=== PATIENT | female | born 1980 | race Caucasian/White ===

== ENCOUNTER → 2016-05-20 | Outpatient (CLI) | payer MEDICAID ==
[~2016-05-20] MED LIST: DOCU100C37 PO; IBUP-1780 PO; OXYC-465 PO; TRAM50TA2 PO
--- NOTE | 2016-05-20 12:55 | Diagnostic Imaging Report ---
CLINICAL INDICATION: Followup right thyroid nodule. COMPARISONS: Thyroid ultrasound dated 11/08/2015. FINDINGS: THYROID NODULES: Again seen roughly 9 mm x 4 mm x 5 mm solid and cystic nodule within the upper pole the right thyroid gland. This nodule previously measured 8 mm x 5 mm x 4 mm. THYROID GLAND: Besides the thyroid nodules, the thyroid gland has normal size, shape and echogenicity. The right lobe measures 6.0 cm x 1.3 cm x 1.9 cm and the left lobe measures 5.4 cm x 1.3 cm x 1.7 cm in their three dimensions. ISTHMUS: The isthmus is unremarkable and measures 2 mm in thickness. IMPRESSION: Relatively stable 9 mm nodule within the right thyroid gland. Otherwise , unremarkable thyroid ultrasound exam. Dictated by: Dictated on workstation # [id number]
== END ==
LOC: RAD 10:31
PROVIDERS: ATTEND Nurse Practitioner Family
DX: E04.9 Nontoxic goiter, unspecified (principal)
CPT/HCPCS: 76536

== ENCOUNTER 2016-06-07 10:48 | Emergency (ER) | payer MEDICAID ==
[~2016-06-07] VITALS: Ht 162.6 cm; Wt 43.1 kg
[~2016-06-07 10:48] MED LIST changes: -DOCU100C37 PO; -IBUP-1780 PO; -OXYC-465 PO
[2016-06-07 11:10] LABS: BILIRUBIN,URINE NEGATIVE (NEGATIVE); KETONES,URINE NEGATIVE (NEGATIVE); LEUKOCYTE ESTERASE ,URINE 1+ (NEGATIVE); NITRITE,URINE NEGATIVE (NEGATIVE); PH,URINE 7 (5-9); PROTEIN,URINE NEGATIVE (NEGATIVE); UROBILINOGEN,URINE NORMAL (NORMAL)
[2016-06-07] MEDS ORDERED: fentaNYL INJECTION 100 MCG/2 ML AMP IVP PRN (11:15)
[2016-06-07] MEDS ORDERED: NS IV 1000 ML 1,000 ML IV SCH (11:15)
[2016-06-07 11:22] LABS: SQUAMOUS EPITHELIAL CELL,UR 25-50 /HPF
[2016-06-07 11:30] LABS: BASOPHILS % (AUTO) 0 % (0-10); EOSINOPHILS % (AUTO) 1 % (0-10); LYMPHOCYTES # (AUTO) 1.4 X 10^3 (1.0-4.0); LYMPHOCYTES % (AUTO) 18 % (12-44); MEAN CORPUSCULAR HEMOGLOBIN 32 PG (25-34); MEAN CORPUSCULAR HGB CONC 34 G/DL (32-36); MEAN CORPUSCULAR VOLUME 93 FL (80-99); MEAN PLATELET VOLUME 11.8 FL (7.4-10.4); MONOCYTES # (AUTO) 0.4 X 10^3 (0.0-1.0); MONOCYTES % (AUTO) 5 % (0-12); NEUTROPHILS # (AUTO) 5.7 X 10^3 (1.8-7.8); NEUTROPHILS % (AUTO) 76 % (42-75); PLATELET COUNT 188 10^3/uL (130-400); RED BLOOD COUNT 4.44 10^6/uL (4.35-5.85); RED CELL DISTRIBUTION WIDTH 12.2 % (10.0-14.5); WHITE BLOOD COUNT 7.4 10^3/uL (4.3-11.0)
--- NOTE | 2016-06-07 11:46 | ED GU-Female ---
General Chief Complaint: -Female Stated Complaint: STOMACH/BACK/PELVIC PAIN Nursing Triage Note: States she is having pain in lower abd and pressure to back- unable to straighten up. 01/12. States she is scheduled for part hyst on . States she has pelvic congestion syndrome Nursing Sepsis Screen: No Definite Risk Source: patient Exam Limitations: no limitations History of Present Illness Time seen by provider: 11:41 Initial Comments This 35-year-old C-section4 white female presents with a complaint of pelvic pain. The patient has had several months of similar discomfort felt to be secondary to pelvic congestion syndrome. Patient is scheduled for a hysterectomy this next week with Dr. Blue and Dr. Patrick to treat this condition. The patient denies associated dysuria, frequency, fever, chill, hematuria, nausea, vomiting, diarrhea, or purulent discharge. Allergies and Home Medications Allergies Coded Allergies: acetaminophen (Verified Allergy, Unknown, 06/07/16) hydrocodone (Verified Allergy, Unknown, 06/07/16) nitrofurantoin (Verified Allergy, Unknown, 06/07/16) Constitutional: No chills, No fever EENTM: No hearing loss, No vision loss Respiratory: No cough Cardiovascular: No chest pain Gastrointestinal: No abdominal pain, No diarrhea, No nausea, No vomiting Genitourinary: other (pelvic pain) Musculoskeletal: No back pain Skin: No rash Psychiatric/Neurological: No Symptoms Reported Endocrine: No Symptoms Reported Hematologic/Lymphatic: No Symptoms Reported Past [id number] Hx Patient Social History Alcohol Use: Denies Use Recreational Drug Use: No Smoking Status: Current Everyday Smoker Type Used: Cigarettes 2nd Hand Smoke Exposure: Yes Recent Foreign Travel: No Contact w/Someone Who Travel: No Recent Infectious Disease Expo: No Recent Hopitalizations: No Immunizations Up To Date Tetanus Booster (TDap): Less than 5yrs Seasonal Allergies Seasonal Allergies: No Surgeries HX Surgeries: Yes Surgeries: Section, Tubal Ligation Respiratory Hx Respiratory Disorders: No Cardiovascular Hx Cardiac Disorders: No Neurological Hx Neurological Disorders: No Reproductive System Hx Reproductive Disorders: No Genitourinary Hx Genitourinary Disorders: No Gastrointestinal Hx Gastrointestinal Disorders: No Musculoskeletal Hx Musculoskeletal Disorders: No Endocrine Hx Endocrine Disorders: No HEENT HX ENT Disorders: No Cancer Hx Cancer: No Psychosocial Hx Psychiatric Problems: No Reviewed Nursing Assessment Reviewed/Agree w Nursing PMH: Yes Family Medical History Significant Family History: No Pertinent Family Hx Physical Exam Vital Signs Vital Sign - Last 12Hours 06/07/16 10:58 Temp 98.3 Pulse 91 Resp 18 B/P 103/51 Pulse Ox 98 Capillary Refill : Less Than 3 Seconds General Appearance: WD/WN mild distress HEENT: normal ENT inspection Neck: normal inspection Cardiovascular: normal peripheral pulses regular rate, rhythm Respiratory: lungs clear normal breath sounds Gastrointestinal: normal bowel sounds non tender soft Genital/Rectal: normal genital exam tenderness (moderate tenderness in the left adnexa.) Back: normal inspection Extremities: normal range of motion non-tender Neurologic/Psychiatric: no motor/sensory deficits alert normal mood/affect Skin: normal color warm/dry Progress/Results/Core Measures Results/Orders Lab Results Laboratory Tests Test 06/07/16 10:58 06/07/16 11:25 06/07/16 11:40 Range/Units Urine Bacteria NEGATIVE /HPF Urine Bilirubin NEGATIVE NEGATIVE Urine Casts NONE /LPF Urine Clarity SLIGHTLY CLOUDY Urine Color YELLOW Urine Crystals NONE /LPF Urine Culture Indicated NO Urine Glucose (UA) NEGATIVE NEGATIVE Urine Ketones NEGATIVE NEGATIVE Urine Leukocyte Esterase 1+ H NEGATIVE Urine Mucus NEGATIVE /LPF Urine Nitrite NEGATIVE NEGATIVE Urine Test NEGATIVE NEGATIVE Urine Protein NEGATIVE NEGATIVE Urine RBC NONE /HPF Urine RBC (Auto) NEGATIVE NEGATIVE Urine Specific [place] 1.010 L 1.016-1.022 Urine Squamous Epithelial Cells 25-50 H /HPF Urine Urobilinogen NORMAL NORMAL MG/DL Urine WBC NONE /HPF Urine pH 7 5-9 Alanine Aminotransferase (ALT/SGPT) 11 0-55 U/L Albumin 4.4 3.2-4.5 G/DL Alkaline Phosphatase 35 L 40-136 U/L Anion Gap 9 5-14 MMOL/L Aspartate Amino Transf (AST/SGOT) 14 5-34 U/L BUN/Creatinine Ratio 13 Basophils # (Auto) 0.0 0.0-0.1 10^3/uL Basophils (%) (Auto) 0 0-10 % Blood Urea Nitrogen 10 7-18 MG/DL Calcium Level 9.0 8.5-10.1 MG/DL Carbon Dioxide Level 24 21-32 MMOL/L Chloride Level 107 98-107 MMOL/L Creatinine 0.79 0.60-1.30 MG/DL Eosinophils # (Auto) 0.0 0.0-0.3 10^3/uL Eosinophils (%) (Auto) 1 0-10 % Erythrocyte Sedimentation Rate 2 0-20 MM/HR Estimat Glomerular Filtration Rate > 60 Glucose Level 91 70-105 MG/DL Hematocrit 41 35-52 % Hemoglobin 14.1 11.5-16.0 G/DL Lymphocytes # (Auto) 1.4 1.0-4.0 X 10^3 Lymphocytes (%) (Auto) 18 12-44 % Mean Corpuscular Hemoglobin 32 25-34 PG Mean Corpuscular Hemoglobin Concent 34 32-36 G/DL Mean Corpuscular Volume 93 80-99 FL Mean Platelet Volume 11.8 H 7.4-10.4 FL Monocytes # (Auto) 0.4 0.0-1.0 X 10^3 Monocytes (%) (Auto) 5 0-12 % Neutrophils # (Auto) 5.7 1.8-7.8 X 10^3 Neutrophils (%) (Auto) 76 H 42-75 % Platelet Count 188 130-400 10^3/uL Potassium Level 3.9 3.6-5.0 MMOL/L Red Blood Count 4.44 4.35-5.85 10^6/uL Red Cell Distribution Width 12.2 10.0-14.5 % Sodium Level 140 135-145 MMOL/L Total Bilirubin 0.7 0.1-1.0 MG/DL Total Protein 6.8 6.4-8.2 G/DL White Blood Count 7.4 4.3-11.0 10^3/uL Micro Results Microbiology 06/07/16 Genital Culture, Resulted Pending 06/07/16 Wet Prep - Final, Resulted My Orders Orders-GRANT LACKEY MD Cbc With Automated Diff (06/07/16 11:04) Comprehensive Metabolic Panel (06/07/16 11:04) Ua Culture If Indicated (06/07/16 11:04) Erythrocyte Sedimentation Rate (06/07/16 11:04) Hcg,Qualitative Urine (06/07/16 11:09) Ns Iv 1000 Ml (Sodium Chloride 0.9%) (06/07/16 11:15) Fentanyl Injection (Sublimaze Injection (06/07/16 11:15) Wet Prep (06/07/16 11:39) Neisseria Gonorrhea Dna (06/07/16 11:39) Chlamydia Dna (06/07/16 11:39) Genital Culture (06/07/16 11:39) Medications Given in ED Current Medications Medications Dose Ordered Sig/Giorgi Route Start Time Stop Time Status Last Admin Dose Admin Fentanyl Citrate 50 mcg Q1H PRN IVP 06/07/16 11:15 06/07/16 11:42 50 MCG Vital Signs/I&O Vital Sign - Last 12Hours 06/07/16 10:58 Temp 98.3 Pulse 91 Resp 18 B/P 103/51 Pulse Ox 98 Blood Pressure Mean: 68 Progress Note : Time: 11:44 Progress Note The patient's laboratory evaluation was essentially unremarkable. She normal white count and hemoglobin. The urinalysis was essentially benign. Cultures and wet mount were obtained during the patient's pelvic area exam. Patient was given IV fentanyl with marked improvement in her discomfort. Patient's laboratory evaluation was essentially unremarkable. Patient was given a small amount pain medication until she can follow up with her physicians tomorrow. Departure Impression Impression: Primary Impression: Pelvic pain Disposition: 01 HOME, SELF-CARE Condition: Improved Departure-Patient Inst. Decision time for Depature: 13:04 Referrals: APRYL CASANOVA DO (PCP) Primary Care Physician MARILUZ HERNDON APRN (Family) Primary Care Physician EDUARDO BLUE MD, ELIAS A MD Patient Instructions: Acute Pelvic Pain (DC) Add. Discharge Instructions: Tramadol for pain. Close follow Dr. Blue. Come back if any problems or questions. All discharge instructions reviewed with patient and/or family. Voiced understanding. GRANT LACKEY MD Jun 07, 2016 11:46
[2016-06-07 11:48] LABS: ALANINE AMINOTRANSFERASE 11 U/L (0-55); ALBUMIN 4.4 G/DL (3.2-4.5); ANION GAP 9 MMOL/L (5-14); ASPARTATE AMINO TRANSFERASE 14 U/L (5-34); BILIRUBIN,TOTAL 0.7 MG/DL (0.1-1.0); BLOOD UREA NITROGEN 10 MG/DL (7-18); BUN/CREATININE RATIO 13; CARBON DIOXIDE 24 MMOL/L (21-32); CHLORIDE 107 MMOL/L (98-107); CREATININE SERUM 0.79 MG/DL (0.60-1.30); GFR ESTIMATED > 60; GLUCOSE 91 MG/DL (70-105); POTASSIUM 3.9 MMOL/L (3.6-5.0); SODIUM 140 MMOL/L (135-145); TOTAL PROTEIN 6.8 G/DL (6.4-8.2)
[2016-06-07 11:55] LABS: ERYTHROCYTE SEDIMENTATION RATE 2 MM/HR (0-20)
[2016-06-07 13:17] VITALS: BP 109/45
== END 2016-06-07 13:17 | disposition home or self-care (01) ==
LOC: EDUNIT# 10:48 → ER 10:51
DX: N94.89 Other specified conditions associated with female genital organs and menstrual cycle (principal); F17.210 Nicotine dependence, cigarettes, uncomplicated
CPT/HCPCS: 36415; 80053; 81000; 84703; 85025; 85652; 87070; 87210; 87491; 87591; 96361; 96374; 99284

== ENCOUNTER 2016-06-29 11:50 | Outpatient (CLI) | payer MEDICAID ==
[~2016-06-29] VITALS: Ht 162.6 cm; Wt 44.0 kg
[2016-06-29 12:15] VITALS: BP 94/46
[2016-07-04] MEDS ORDERED: IBUP-1780 PO (08:09)
[2016-07-04] MEDS ORDERED: OXYC-465 PO (08:09)
[2016-07-04] MEDS ORDERED: DOCU100C37 PO (08:09)
== END 2016-06-29 12:10 | disposition home or self-care (01) ==
LOC: PREOP 11:50
PROVIDERS: ATTEND Obstetrics & Gynecology
DX: Z01.818 Encounter for other preprocedural examination (principal); Z11.2 Encounter for screening for other bacterial diseases; N93.8 Other specified abnormal uterine and vaginal bleeding; N39.3 Stress incontinence (female) (male); R10.2 Pelvic and perineal pain; N81.4 Uterovaginal prolapse, unspecified; D64.9 Anemia, unspecified
CPT/HCPCS: 87081

== ENCOUNTER 2016-07-03 10:36 | Day surgery (SDC) | payer MEDICAID ==
[~2016-07-03] VITALS: Ht 162.6 cm; Wt 44.0 kg
[2016-07-03] MEDS ORDERED: NS (IVPB) 0 ML ONE (10:39)
[2016-07-03] MEDS ORDERED: ceFAZolin 1,000 MG (ANCEF) VIAL ONE (10:39)
[2016-07-03] MEDS ORDERED: NS (IVPB) 50 ML ONE (10:40)
[2016-07-03] MEDS ORDERED: ceFAZolin 1 GM/NS 50 ML IVPB IV ONE ×2 (11:00)
[2016-07-03] MEDS ORDERED: MIDAZOLAM 2 MG/2 ML (VERSED) VIAL IV ONE (11:00)
[2016-07-03] MEDS ORDERED: LACTATED RINGERS 1,000 ML IV PRN ×2 (11:00→12:10)
[2016-07-03] MEDS ORDERED: fentaNYL INJECTION 250 MCG/5 ML AMP ONE (11:22)
[2016-07-03] MEDS ORDERED: proPOfol 200 MG/20 ML (DIPRIVAN) VIAL IV ONE (11:22)
[2016-07-03] MEDS ORDERED: ROCURONIUM 50 MG/5 ML (ZEMURON) VIAL IV ONE (11:22)
[2016-07-03] MEDS ORDERED: D5 LR IV SOLUTION 1,000 ML IV SCH (11:54)
--- NOTE | 2016-07-03 11:54 | Progress Note-Pre Operative ---
Pre-Operative Progress Note H&P Reviewed The H&P was reviewed, patient examined and no changes noted. Date H&P Reviewed: Jul 03, 2016 Time H&P Reviewed: 11:53 Pre-Operative Diagnosis: stress urinary incontinence/pelvic pain/DUB/pelvic congestion EDUARDO YEN MD Jul 03, 2016 11:54 am
[2016-07-03] MEDS ORDERED: MEPERIDINE (DEMEROL) INJ 100 MG/ML IM PRN (12:00)
[2016-07-03] MEDS ORDERED: PROMETHAZINE INJ 25 MG/ML (PHENERGAN) AMP IM PRN (12:00)
[2016-07-03] MEDS ORDERED: WATER (STERILE) FOR INJ 10 ML BTL INJ ONE (12:00)
[2016-07-03] MEDS ORDERED: ONDANSETRON 4 MG/2 ML (SDV) Z0FRAN IVP PRN (12:00)
[2016-07-03] MEDS ORDERED: BENZOCAINE/MENTHOL (DERMOPLAST) 56 ML CAN TP PRN (12:00)
[2016-07-03] MEDS ORDERED: ESTROGENS CONJ IV 25 MG/5 ML (PREMARIN) VIAL IVP ONE (12:00)
[2016-07-03] MEDS ORDERED: LIDOCAINE/EPI 1%-1:100,000 (XYLOCAINE) 20ML ONE (12:04)
[2016-07-03] MEDS ORDERED: BUP/EPI 0.25% 1:200,000 (MARCAINE) 30 ML VIAL ONE (12:04)
[2016-07-03] MEDS ORDERED: MIDAZOLAM 2 MG/2 ML (VERSED) VIAL ONE (12:17)
--- NOTE | 2016-07-03 12:19 | Progress Note-Post Operative ---
Post-Operative Progess Note Surgeon (s)/Creche Attendant (s) Surgeon JILLIAN AMATO MD Creche Attendant: FARSHAD Pre-Operative Diagnosis stress urinary incontinence, OAB, ISD Post-Operative Diagnosis SAME Post-Op Procedure Note Date of Procedure: Jul 03, 2016 Name of Procedure Performed: PVS AND CYSTOSCOPY Description of the Procedure: PER DICTATION Findings of the Procedure PER DICTATION Anesthesia Type GENERAL Estimated blood loss (mL): NEGLIGIBLE Packing: ESTRACE VAG. PACK Specimen(s) collected/removed NONE JILLIAN AMATO MD Jul 03, 2016 12:19 pm
[2016-07-03] MEDS ORDERED: SEVOFLURANE (ULTANE) 15 ML INHAL SOLN ONE ×2 (14:05→14:32)
[2016-07-03] MEDS ORDERED: ESTRADIOL VAGINAL CREAM 42.5 GM (ESTRACE) VG ONE (14:06)
[2016-07-03] MEDS ORDERED: NEOSTIGMINE (BLOXIVERZ ) 1 MG/1ML 10 ML VIAL ONE (14:13)
[2016-07-03] MEDS ORDERED: GLYCOPYRROLATE 0.2 MG/ML (ROBINUL) 2 ML VIAL ONE (14:13)
[2016-07-03] MEDS ORDERED: morphine INJ 10 MG/ML 1ML (SYR OR VIAL) ONE (14:26)
[2016-07-03] MEDS ORDERED: WATER (STERILE) FOR INJECTION 10 ML ONE (14:27)
[2016-07-03] MEDS ORDERED: ESTROGENS CONJ IV 25 MG/5 ML (PREMARIN) VIAL ONE (14:27)
[2016-07-03] MEDS ORDERED: MEPERIDINE (DEMEROL) INJ 50 MG/ML ONE (14:37)
[2016-07-03] MEDS: MEPERIDINE (DEMEROL) INJ 50 MG/ML IV PRN ×2 (14:40→14:45)
[2016-07-03 14:44] VITALS: BP 121/71
[2016-07-03] MEDS ORDERED: morphine INJ 10 MG/ML 1ML (SYR OR VIAL) IV PRN (14:45)
[2016-07-03] MEDS ORDERED: ONDANSETRON 4 MG/2 ML (SDV) Z0FRAN IV PRN (14:45)
[2016-07-03] MEDS ORDERED: HYDROmorphone (DILAUDID) 2 MG/ML VIAL IV PRN (14:45)
[2016-07-03 15:30] VITALS: BP 106/59
[2016-07-03 16:00] VITALS: BP 119/68
[2016-07-03 17:00] VITALS: BP 102/60
[2016-07-03 19:57] VITALS: BP 110/61
[2016-07-03] MEDS: KETOROLAC 30 MG/ML VIAL IVP SCH (21:05)
[2016-07-04] VITALS: BP 114/66
[2016-07-04] MEDS: KETOROLAC 30 MG/ML VIAL IVP SCH (02:53)
[2016-07-04 04:55] VITALS: BP 104/64
[2016-07-04 08:00] VITALS: BP 108/43
[2016-07-04] MEDS ORDERED: IBUPROFEN 800 MG (MOTRIN) TAB PO ONE (08:01)
--- NOTE | 2016-07-04 08:06 | Progress Note-Standard ---
Standard Progress Note Progress Notes/Assess & Plan Progress/Assessment & Plan patient is without complaint. She is ambulating, voiding, tolerating by mouth well, has good pain control. Patient denies chest pain, denies shortness of breath, denies nausea vomiting, and denies headache. Vital Signs Date Time Temp Pulse Resp B/P (MAP) Pulse Ox O2 Delivery O2 Flow Rate FiO2 07/04/16 04:55 97.8 84 17 104/64 98 Room Air 07/04/16 00:00 96.6 75 18 114/66 100 Room Air 07/03/16 19:57 96.0 83 18 110/61 94 Room Air 07/03/16 17:00 79 16 102/60 98 Room Air 07/03/16 16:00 97.4 90 16 119/68 99 Room Air 07/03/16 15:30 97.5 89 16 106/59 99 Room Air 07/03/16 14:44 97.6 62 18 121/71 99 Room Air I & O 07/04/16 07:00 Intake Total 2000 ml Output Total 1450 ml Balance 550 ml vital signs are stable. Patient is afebrile. Abdomen is benign. Extremities show no clubbing or cyanosis. There is no Homans sign. Assessment and plan postoperative day number 1 doing well. Plan is for discharge home with follow-up in clinic. Final Diagnosis DUB/CPP/ANA/prolapse/endometriosis EDUARDO YEN MD Jul 04, 2016 8:06 am
[2016-07-04] MEDS ORDERED: IBUP-1780 PO (08:09)
[2016-07-04] MEDS ORDERED: DOCU100C37 PO (08:09)
[2016-07-04] MEDS ORDERED: OXYC-465 PO (08:09)
--- NOTE | 2016-07-04 08:11 | Discharge Instructions ---
Discharge Instructions Discharge Medications New, Converted or Re-Newed RX: RX on Chart Patient Instructions Patient Instructions: as directed Return to The Hospital For: as directed Activity & Diet Discharge Diet: No Restrictions Activity as Tolerated: No Orders-Post D/C & Referrals Follow Up Appt: return to clinic on Sunday, July 10, 2016 at 930 a.m. for suture removal Call to make follow up appt. for patient in 4 weeks. Activity: Rest for 24 hours, than as tolerated. Wound Care: May remove Band-Aid tomorrow. Replace as desired. Keep incisions clean and dry. Wash daily with soap and water. Please call in RX to patient pharmacy. Diet: As tolerated-Clear Liquids only if nauseated. Tomorrow, may shower or tub bathe as desired. No driving for 24 hours, no alcoholic beverages for 24 hours, and nothing per vagina (no tampons, douching, or intercourse) for 8 weeks. Patient to return to the clinic as soon as possible for: Temperature greater than 101F, Severe Pain, Foul discharge from incision or vagina, Excessive Bleeding (more than a period). EDUARDO YEN MD Jul 04, 2016 8:10 am
[2016-07-04] MEDS: oxyCODONE/APAP 10/325MG (PERCOCET 10) TABLET PO PRN ×2 (08:17→11:40)
[2016-07-04] MEDS ORDERED: ONDANSETRON 8 MG (ZOFRAN) ORAL DISSOLVE TAB SL ONE (08:45)
[2016-07-04] MEDS ORDERED: DOCUSATE SODIUM 100 MG (COLACE) CAP PO SCH (09:00)
--- NOTE | 2016-07-04 10:08 | Progress Note-Urology ---
Progress Note-Urology Progress Notes/Assess & Plan Progress/Assessment & Plan DOING WELL. VOIDING WELL. FEELS EMPTYING WELL. DRY. HAPPY. PLAN CHECK PVR BEFORE PLANNING DISCHARGE AND FOLLOW UP Final Diagnosis INCONTINENCE, OAB, ISD JILLIAN AMATO MD Jul 04, 2016 10:08 am
[2016-07-04] MEDS ORDERED: IBUPROFEN 800 MG (MOTRIN) TAB PO SCH (12:00)
--- NOTE | 2016-07-05 23:55 | OPERATIVE REPORT ---
PROCEDURE PHYSICIAN: JILLIAN AMATO DATE OF PROCEDURE: 07/03/2016 PREOPERATIVE DIAGNOSIS (on my part): Urinary incontinence with overactive bladder and ISD. POSTOPERATIVE DIAGNOSIS: Urinary incontinence with overactive bladder and ISD. OPERATION PERFORMED: Pubovaginal sling and cystoscopy. SURGEON: Dr. Amato. LENS GRINDER: Dr. Blue. COMPLICATIONS: None. PROCEDURE: After Dr. Blue for performed his first part of his surgery that he will dictate, I went ahead and reinserted the Joya catheter in the bladder. I passed the Solyx pubovaginal sling on both sides using the described technique. The sling was sitting nicely under the mid urethra with no tension and no twist. The Joya catheter was removed. The cystoscope was introduced and cystoscopy confirmed intact ureteric orifices, bladder and urethra. No foreign body and presence of the sling under the mid urethra. I left the bladder half full, removed the cystoscope, and performed a manual Valsalva maneuver that was negative. I reinserted the Joya catheter draining clear urine. Estimated blood loss on my part, negligible and Dr. Blue proceeded with his part of his surgery that he will dictate. Job ID: [id number] Dictated Date: 07/03/2016 14:08:49 Survival Specialist Date: 07/05/2016 23:50:58 / tbrigo
--- NOTE | 2016-07-06 00:29 | OPERATIVE REPORT ---
PROCEDURE PHYSICIAN: EDUARDO YEN DATE OF PROCEDURE: 07/03/2016 PREOPERATIVE DIAGNOSIS: 1. Dysfunctional uterine bleeding. 2. Stress urinary incontinence. 3. Chronic pelvic pain. 4. Uterovaginal prolapse. POSTOPERATIVE DIAGNOSES: 1. Dysfunctional uterine bleeding. 2. Stress urinary incontinence. 3. Chronic pelvic pain. 4. Uterovaginal prolapse. 5. Endometriosis. OPERATIVE PROCEDURE: Total laparoscopic hysterectomy with bilateral salpingectomies, right oophorectomy followed by anterior and posterior vaginal repairs with enterocele repair as well as Dr. Patrick performing a pubovaginal sling and cystoscopy. The hysterectomy portion was done with the assistance of the da Johnny robot. With the patient in the supine position, under satisfactory general anesthesia, she was repositioned in dorsal lithotomy position in the Ankit stirrups and prepped and draped in the usual fashion for abdominal and vaginal surgery. The urinary bladder was drained via Joya catheter to dependent drainage. Weighted speculum placed in posterior fornix of the vagina. Cervix exposed and grasped anteriorly with single-tooth tenaculum. The uterus sounded to 9 cm of uterine sound. The cervix was then serially dilated with Sushant dilators to accommodate a uterine manipulator, which was placed using a SHAMIKA 2 manipulator with a 6 mm x 8 cm uterine probe, a 30 mm colpotomy ring and sutures of number 1 Vicryl at 3 and 9 o'clock position of the cervix to affix the uterine cervix to the manipulator. Joya cath was placed in the urinary bladder. The patient was brought in low dorsal lithotomy position. A 12 mm incision was made just superior to the umbilicus, 8 mm incisions were made 9 cm lateral to the umbilicus. All 3 incision sites were infiltrated with 0.25% Marcaine with epinephrine prior to incision. Veress needle was placed through the umbilical incision. Correct placement confirmed with the water drop test and the abdomen was insufflated with 2.4 liters of carbon dioxide. The Veress needle was removed and a 12 mm Optiview laparoscopic port placed. The abdominal wall was transilluminated and 8 mm ports were placed in right and left lateral incisions. The patient placed in Trendelenburg, allowing the bowel to spill up out of the pelvis and then the da Johnny column was advanced onto the patient and docked and I retired to the da Johnny console. At the console, using the vessel sealer on the right and bipolar fenestrated grasper on the left, the pelvis was first examined, finding endometriosis in both ovarian fossae and in the cul-de-sac. The fallopian tubes, the distal two thirds were surgically absent. The proximal 1/3rd of each tube was still present. The appendix was examined. It was normal. The decision was made to go ahead with the intended procedure, that being conservation of the left ovary with right oophorectomy, bilateral salpingectomies and total laparoscopic hysterectomy. The right fallopian tube and ovary were grasped and elevated. The ureter was seen to peristaltic well away from the IP ligament. The IP ligament was clamped, cauterized, and divided stepwise across to the side of uterus and then across the broad ligaments, across the round ligaments, and down on the cardinal ligament. The same procedure was performed on the left, although the left ovary was remained in situ. The utero-ovarian pedicle was clamped, cauterized, and divided being sure to remove the proximal portion of the fallopian tube that had remained after this patient's remote tubal sterilization. The round ligament, broad ligaments were divided as were the cardinal ligament insuring hemostasis along the way. The anterior lower uterine segment peritoneum was then divided with monopolar shear replacing the vessel sealer. The bladder was carefully dissected down off of the lower uterine segment and then colpotomy was easily made at 12 o'clock position, continued circumferentially until the entire colpotomy ring exposed the uterus with the portion of tube remaining was removed with the right ovary attached. The vaginal cuff was closed with 2 sutures of V-LOC nelly suture starting at the right angle and continued to the midportion and from the left angle to the midportion bringing the peritoneum down on the cuff with the last couple stitches and including closure of the uterine vessels bilaterally with the initiation of the closure. Both ureters were seen to peristaltic before, during, and after the entire procedure. The pelvis was now irrigated, monopolar shear was used to touch and cauterize all the endometriosis implants that were seen. There were a few on each side and in the cul-de-sac and one on the bladder dome. Hemostasis was complete. There was no further remaining pathology, the procedure was terminated. Attention was now turned to the anterior and posterior vaginal repair. The patient was reposition in the dorsal lithotomy position, weighted speculum placed in posterior fornix of the vagina. The Joya catheter was removed. The Chandra clamps were placed on the anterior vaginal wall in the midline and then the midline was opened with Metzenbaum scissors continuing that opening from about a centimeter and a half from the urethra meatus to almost the apex of the vagina. Bladder was carefully dissected off the muscularis of the vagina, back to pubic rami bilaterally. The bladder wall and endopelvic fascia were then plicated with 2-0 Vicryl sutures, elevating the bladder and lengthening the urethra. Dr. Patrick assumed care of the patient at this point for the pubovaginal sling and cystoscopy, I remained to assist. Dr. Patrick will dictate his portion of the procedure. On completion of Dr. Patrick's portion of the procedure, I resumed care of the patient, resected the redundant anterior vaginal muscularis and mucosa and closed the vaginal wall with a running lock suture of 2-0 Vicryl. Hemostasis was complete. Dr[address] Patrick had replaced the Joya catheter to dependent drainage on completion of his portion of the procedure; that was left to dependent drainage. Posterior repair was now affected by placing Chandra clamps on the perineum and the hymenal ring at 5 and 7 o'clock positions. An inverted triangle of skin was removed from the perineal body and upright triangle from the posterior vaginal floor. The rectovaginal space was entered sharply and dissected bluntly to the apex of the vagina. There was a small enterocele that was reduced and plicated with 2-0 Vicryl suture purse strings using 2 of those and then the rectovaginal space was obliterated with additional sutures of 2-0 Vicryl. The perineal body was restored 2-0 Vicryl. The redundant posterior vaginal muscularis and mucosa was removed sharply. The vaginal wall was then closed with running locked suture of 3-0 Vicryl Rapide. That closure was continued past the hymenal ring down on the perineal body and then back up subcutaneous to the hymenal ring where the suture was tied. The vagina was examined for hemostasis, which was complete. The vaginal cuff was well approximated and hemostatic. The rectal exam was performed finding no sutures into or through the rectal mucosa, no stricture or stenosis of the rectum. The vagina was now filled with esterase vaginal cream and a pack of Kerlix gauze was placed. Sponge and needle counts were correct at the end of procedure. Estimated blood loss for the procedure was 150 mL. The patient tolerated the procedure well and was uneventfully awakened from her general anesthesia and transferred to recovery room in stable condition. Job ID: [id number] Dictated Date: 07/03/2016 14:26:59 Fish Skinning Machine Feeder Date: 07/06/2016 00:13:37 / munir
--- OUTSIDE RECORDS SUMMARY | 2016-07-26 08:04 | XMS REPORT ---
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 Problem Encounter for screening breast examination Z12.39 Active Problem Encounter for screening for malignant neoplasm of cervix Z12.4 Active Problem Atypical squamous cells of undetermined significance on cytologic smear of cervix (ASC-US) R87.610 Active Problem Pelvic congestion syndrome N94.89 Active Problem Bipolar 2 disorder F31.81 Active Problem Encounter for well woman exam Z01.419 Active Problem Encounter for gynecological examination without abnormal finding Z01.419 Active Problem H/O thyroid nodule Z86.39 Active Problem Irritable bowel syndrome with both constipation and diarrhea K58.0 Active Problem Routine health maintenance Z00.00 Active Problem Goiter E04.9 Active Problem Screen for STD (sexually transmitted disease) Z11.3 Active Problem Underweight R63.6 Active Problem High risk sexual behavior Z72.51 Active Problem 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
--- OUTSIDE RECORDS SUMMARY | 2016-07-26 08:04 | XMS REPORT ---
Author LYNDON Flynn [facility] eClinicalWorks Address Unknown Phone Unavailable Care Team Providers Care Calculus Tutor Name Role Phone LYNDON DELGADO CP Unavailable Allergies, Adverse Reactions, Alerts Substance Reaction Event Type Vicodin stomach upset Drug Allergy Macrobid itching Drug Allergy Problems Problem Type Condition Code Onset Dates [...] with both constipation and diarrhea K58.0 Active Assessment Lumbago with sciatica, right side M54.41 Active Assessment Lumbago with sciatica, left side M54.42 Active Problem Routine health maintenance Z00.00 Active Problem Goiter E04.9 Active Problem Screen for STD (sexually transmitted disease) Z11.3 Active Problem Underweight R63.6 Active Problem High risk sexual behavior Z72.51 Active Problem 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 Medications Medication Code System Code Instructions Start Date End Date Status Dosage Ibuprofen NDC 0 not defined Seroquel XR [facility] [address]-59 50 mg Orally Once a day Nov 14, 2015 1 tablet in the evening Cyclobenzaprine HCl [facility] [address]-58 10 MG Orally Three times a day NovNov 27, 2015 1 tablet Tramadol HCl [facility] [address]-62 50 MG Orally every 6 hrs Nov 22, 2015 Nov 27, 2015 1 tablet as needed [facility] [address]-71 50 MG Orally Once a day Nov 22, 2015 Nov 27, 2015 1 tablet Procedures Procedure Coding System Code Date Office Visit, Est Pt., Level 3 CPT-4 18314 Nov 22, 2015 X-RAY EXAM OF LOWER SPINE CPT-4 80668 Nov 22, 2015 Vital Signs Date/Time: Nov 22, 2015 Cardiac Monitoring Heart Rate 73 bpm Weight 91.8 lbs Height 5'4" in BMI 15.76 Index Blood Pressure Diastolic 70 mmHg Blood Pressure Systolic 102 mmHg Results No Known Results Summary Purpose eClinicalWorks Submission
--- OUTSIDE RECORDS SUMMARY | 2016-07-26 08:04 | XMS REPORT ---
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
--- OUTSIDE RECORDS SUMMARY | 2016-07-26 08:04 | XMS REPORT ---
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 Problem Encounter for screening breast examination Z12.39 Active Assessment High risk sexual behavior Z72.51 Active Assessment Screen for STD (sexually transmitted disease) Z11.3 Active Problem Encounter for well woman exam Z01.419 Active Problem 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 Problem Underweight R63.6 Active Problem Encounter for screening for malignant neoplasm of cervix Z12.4 Active Problem 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 Active Assessment Encounter for special screening examination for neoplasm of breast Z12.39 Active Assessment Encounter for screening breast examination Z12.39 Active Assessment Encounter for screening for malignant neoplasm of cervix Z12.4 Active Assessment 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 Active Assessment Goiter E04.9 Active Assessment Underweight R63.6 Active Assessment Encounter for gynecological examination without abnormal finding Z01.419 Active Assessment Encounter for well woman exam Z01.419 Active Assessment Routine health maintenance Z00.00 Active Problem Screen for STD (sexually transmitted disease) Z11.3 Active Medications No Known Medications Procedures Procedure Coding System Code Date GLYCATED HEMOGLOBIN TEST CPT-4 15800 Nov 04, 2015 VITAMIN B-12 CPT-4 12555 Nov 04, 2015 LIPID PANEL CPT-4 30230 Nov 04, 2015 VENIPUNCT, ROUTINE* CPT-4 67995 Nov 04, 2015 COMPREHEN METABOLIC PANEL CPT-4 84057 Nov 04, 2015 ASSAY OF VITAMIN D CPT-4 21360 Nov 04, 2015 ASSAY THYROID STIM HORMONE CPT-4 01497 Nov 04, 2015 COMPLETE CBC W/AUTO DIFF WBC CPT-4 12270 Nov 04, 2015 Results No Known Results Summary Purpose eClinicalWorks Submission
--- OUTSIDE RECORDS SUMMARY | 2016-07-26 08:04 | XMS REPORT ---
Author Author MARILUZ HERNDON Organization eClinicalWorks Address Unknown Phone Unavailable Care Team Providers Care Chlorine Cells Operator Name Role Phone MARILUZ HERNDON CP Unavailable Allergies, Adverse Reactions, Alerts Substance Reaction Event Type Vicodin stomach upset Drug Allergy Macrobid itching Drug Allergy Problems Problem Type Condition Code Onset Dates Condition Status Problem High risk sexual behavior Z72.51 Active Problem Goiter E04.9 Active Problem Routine health maintenance Z00.00 Active Problem Encounter for gynecological examination without abnormal finding Z01.419 Active Assessment High risk sexual behavior Z72.51 Active Problem Encounter for screening breast examination Z12.39 Active Assessment Screen for STD (sexually transmitted disease) Z11.3 Active Problem Encounter for well woman exam Z01.419 Active Problem 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 Problem Underweight R63.6 Active Problem Encounter for screening for malignant neoplasm of cervix Z12.4 Active Problem 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 Active Assessment Underweight R63.6 Active Assessment 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 Assessment Routine health maintenance Z00.00 Active Assessment Goiter E04.9 Active Assessment Encounter for screening breast examination Z12.39 Active Assessment Encounter for gynecological examination without abnormal finding Z01.419 Active Assessment 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 Active Assessment Encounter for well woman exam Z01.419 Active Assessment Encounter for screening for malignant neoplasm of cervix Z12.4 Active Problem Screen for STD (sexually transmitted disease) Z11.3 Active Medications No Known Medications Procedures Procedure Coding System Code Date TRICHOMONAS ASSAY W/OPTIC CPT-4 78783 October 31, 2015 CARDOZO VAG, DNA, DIR PROBE CPT-4 44450 October 31, 2015 SPECIMEN HANDLING CPT-4 76606 October 31, 2015 No Charge CPT-4 72803 October 31, 2015 CULTURE, BACTERIA, OTHER CPT-4 68130 October 31, 2015 Preventive Care New Pt. Age 18-39 CPT-4 98987 October 31, 2015 Vital Signs Date/Time: October 31, 2015 Cardiac Monitoring Heart Rate 66 bpm Weight 92.0 lbs Height 5'4" in BMI 15.79 Index Blood Pressure Diastolic 60 mmHg Blood Pressure Systolic 92 mmHg Results No Known Results Summary Purpose eClinicalWorks Submission
--- OUTSIDE RECORDS SUMMARY | 2016-07-26 08:05 | XMS REPORT ---
Author Author MARILUZ HERNDON Organization eClinicalWorks Address Unknown Phone Unavailable Care Team Providers Care Supervisor Cd Area Name Role Phone MARILUZ HERNDON CP Unavailable [...] cytologic smear of cervix (ASC-US) R87.610 Active Assessment Underweight R63.6 Active Problem Pelvic congestion syndrome N94.89 Active Assessment Pelvic congestion syndrome N94.89 Active Assessment H/O thyroid nodule Z86.39 Active Problem Bipolar 2 disorder F31.81 Active Problem Encounter for well woman exam Z01.419 Active Problem Encounter for gynecological examination without abnormal finding Z01.419 Active Problem H/O thyroid nodule Z86.39 Active Problem Irritable bowel syndrome with both constipation and diarrhea K58.0 Active Assessment Bipolar 2 disorder F31.81 Active Assessment Routine health maintenance Z00.00 Active Assessment Goiter E04.9 Active Assessment Atypical squamous cells of undetermined significance on cytologic smear of cervix (ASC-US) R87.610 Active Problem Routine health maintenance Z00.00 Active Problem Goiter E04.9 Active Problem Screen for STD (sexually transmitted disease) Z11.3 Active Problem Underweight R63.6 Active Assessment Irritable bowel syndrome with both constipation and diarrhea K58.0 Active Problem High risk sexual behavior Z72.51 Active Problem 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
== END 2016-07-04 11:50 | disposition home or self-care (01) ==
LOC: DELPENDDIS → SDC 10:36 → WS 15:30 → SDC 07-04 11:50
PROVIDERS: ATTEND Obstetrics & Gynecology
DX: N93.8 Other specified abnormal uterine and vaginal bleeding (principal); N81.4 Uterovaginal prolapse, unspecified; N39.3 Stress incontinence (female) (male); N80.1 Endometriosis of ovary; N80.3 Endometriosis of pelvic peritoneum; R10.2 Pelvic and perineal pain; N36.42 Intrinsic sphincter deficiency (ISD); N32.81 Overactive bladder; N83.201 Unspecified ovarian cyst, right side
CPT/HCPCS: 84703; 86850; 86900; 86901; 88307; 96361; 96372; 96375; 96376

== ENCOUNTER → 2016-09-24 | Outpatient (CLI) | payer MEDICAID ==
[~2016-09-24] MED LIST changes: +DOCU100C37 PO; +IBUP-1780 PO; +OXYC-465 PO
== END ==
DX: N63 Unspecified lump in breast (principal); N60.11 Diffuse cystic mastopathy of right breast; N60.12 Diffuse cystic mastopathy of left breast

== ENCOUNTER 2016-11-06 20:08 | Emergency (ER) | payer MEDICAID ==
[~2016-11-06] VITALS: Ht 162.6 cm; Wt 41.7 kg
[2016-11-06] MEDS ORDERED: AMOX500C2 PO (21:21)
[2016-11-06] MEDS ORDERED: NAPR500T PO (21:21)
--- NOTE | 2016-11-06 21:21 | ED EENT ---
History of Present Illness General Chief Complaint: Dental Problems/Pain Stated Complaint: WISDOM TOOTH BROKEN Nursing Triage Note: PT TO ED 10 W/ C/O DENTAL PAIN ONSET 1630. REPORTS WAS EATING ET A PIECE OF HER "ALREADY BROKE WISDOM TOOTH" BROKE OFF AGAIN. NO OTHER C/O VOICED Source: patient Exam Limitations: no limitations History of Present Illness Time seen by provider: 21:18 Initial Comments To ER with reports of dental pain that began at about 430 p.m. today after she was chewing. She states this tooth has previously broken. Timing/Duration: abrupt Severity: moderate Location: dental Associated Symptoms: denies symptoms Allergies and Home Medications Allergies Coded Allergies: acetaminophen (Verified Allergy, Unknown, 06/07/16) hydrocodone (Verified Allergy, Unknown, 06/07/16) nitrofurantoin (Verified Allergy, Unknown, 06/07/16) Home Medications Docusate Sodium 100 Mg Capsule, 100 MG PO BID, #60 Prescribed by: EDUARDO CASTRO on 07/04/16 0809 Ibuprofen 800 Mg Tablet, 800 MG PO Q6HR, #60 Prescribed by: EDUARDO CASTRO on 07/04/16 0809 Oxycodone HCl/Acetaminophen 1 Each Tablet, 1-2 TAB PO Q4H, #60 Prescribed by: EDUARDO CASTRO on 07/04/16 0809 Review of Systems Constitutional: see HPI Eyes: No Symptoms Reported Ears: No Symptoms Reported Nose: no symptoms reported Mouth: see HPI Throat: no symptoms reported Respiratory: no symptoms reported Cardiovascular: no symptoms reported Musculoskeletal: no symptoms reported Past Okbqcvb-Xvyawt-Zdpzrs Hx Patient Social History Alcohol Use: Denies Use Recreational Drug Use: No Smoking Status: Current Everyday Smoker Type Used: Cigarettes 2nd Hand Smoke Exposure: Yes Recent Foreign Travel: No Contact w/Someone Who Travel: No Recent Infectious Disease Expo: No Recent Hopitalizations: No Immunizations Up To Date Tetanus Booster (TDap): Less than 5yrs Seasonal Allergies Seasonal Allergies: No Surgeries HX Surgeries: Yes (c/s x4, ) Surgeries: Section, Tubal Ligation Respiratory Hx Respiratory Disorders: No Cardiovascular Hx Cardiac Disorders: Yes Cardiac Disorders: Heart Murmur Neurological Hx Neurological Disorders: No Reproductive System Hx Reproductive Disorders: Yes Genitourinary Hx Genitourinary Disorders: No Gastrointestinal Hx Gastrointestinal Disorders: Yes (upper right quad pain for 6 years unable to figure out from what) Gastrointestinal Disorders: Irritable Bowel Musculoskeletal Hx Musculoskeletal Disorders: No Endocrine Hx Endocrine Disorders: No (nodule on right side of thyroid no change in size in past year) HEENT HX ENT Disorders: No Cancer Hx Cancer: No Psychosocial Hx Psychiatric Problems: No Integumentary HX Skin/Integumentary Disorder: No Blood Transfusions Hx Blood Disorders: No (hx of anemia) Family Medical History Significant Family History: No Pertinent Family Hx Family Medial History: Arthritis 19 FATHER Asthma G8 BROTHER Drug abuse 19 FATHER Hypertension 19 MOTHER Respiratory disorder 19 MOTHER Physical Exam Vital Signs Vital Sign - Last 12Hours 11/06/16 20:12 Temp 98.4 Pulse 57 Resp 20 B/P (MAP) 116/61 Pulse Ox 99 O2 Delivery Room Air General Appearance: WD/WN, no apparent distress Eyes: bilateral eye EOMI, bilateral eye PERRL, bilateral eye normal inspection Ears: bilateral ear TM normal, bilateral ear auricle normal, bilateral ear canal normal Mouth/Throat: normal mouth inspection, other (fractured tooth) Neck: non-tender, full range of motion Respiratory: no respiratory distress, no accessory muscle use Gastrointestinal: non tender, soft Neurologic/Psychiatric: alert, normal mood/affect, oriented x 3 Skin: normal color, warm/dry Progress/Results/Core Measures Results/Orders My Orders Orders - PAWAN PULIDO APRN Rx-Tramadol Hcl (Rx-Ultram) (11/06/16 21:16) Lidocaine 2% Viscous 15 Ml (Xylocaine Vi (11/06/16 21:30) Amoxicillin Capsule (Polymox Capsule) (11/06/16 21:16) Vital Signs/I&O Vital Sign - Last 12Hours 11/06/16 20:12 Temp 98.4 Pulse 57 Resp 20 B/P (MAP) 116/61 Pulse Ox 99 O2 Delivery Room Air Blood Pressure Mean: 79 Progress Note : Progress Note When asked who her dentist was she states "I'm new to [place]". Despite this, she has 11 encounters with his hospital in the last year. Departure Impression Impression: Primary Impression: Fractured tooth Disposition: HOME, SELF-CARE Condition: Stable Departure-Patient Inst. Decision time for Depature: 21:20 Referrals: DAYAMI MCALLISTER MD (PCP) Primary Care Physician Patient Instructions: Fractured Tooth (DC) Add. Discharge Instructions: 1. You must follow-up with a dentist. If you do not have one, go to [facility] on on [address] on Wednesday morning in person to make an appointment as soon as possible 2. Antibiotics as directed 3. When Your pain pills run out, use Tylenol and Motrin. All discharge instructions reviewed with patient and/or family. Voiced understanding. Scripts Naproxen (Naprosyn) 500 Mg Tablet 500 MG PO BID, #30 TAB Prov: PAWAN PULIDO APRN 11/06/16 Amoxicillin (Amoxicillin) 500 Mg Capsule 500 MG PO TID, #21 CAP Prov: PAWAN PULIDO APRN 11/06/16 PAWAN PULIDO APRN Nov 06, 2016 21:21
[2016-11-06] MEDS: LIDOCAINE 2% VISCOUS 15 ML UDC PO ONE (21:27)
[2016-11-06] MEDS: AMOXICILLIN 500 MG (POLYMOX) CAP PO STA (21:27)
[2016-11-06 21:31] VITALS: BP 0/0
[2016-11-06] MEDS: RX-TRAMADOL 50 MG (ULTRAM) TAB PPK#4 PO STA (21:31)
== END 2016-11-06 21:31 | disposition home or self-care (01) ==
LOC: EDUNIT# 20:08 → ER 20:10
DX: K03.81 Cracked tooth (principal); F17.210 Nicotine dependence, cigarettes, uncomplicated; Z98.51 Tubal ligation status; Z87.59 Personal history of other complications of pregnancy, childbirth and the puerperium; Z87.19 Personal history of other diseases of the digestive system
CPT/HCPCS: 99283

== ENCOUNTER 2017-02-25 17:47 | Emergency (ER) | payer MEDICAID ==
[~2017-02-25] VITALS: Ht 162.6 cm; Wt 44.5 kg
[~2017-02-25 17:47] MED LIST changes: +AMOX500C2 PO; +NAPR500T PO
--- OUTSIDE RECORDS SUMMARY | 2017-02-25 17:53 | XMS REPORT ---
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 405360353 Problem Irritable bowel syndrome with both constipation and diarrhea K58.0 Active 32831256 Problem 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 Active 098816351 Problem High risk sexual behavior Z72.51 Active 183246206 Problem Goiter E04.9 Active 6042979 Problem Underweight R63.6 Active 052811335 Problem Midline cystocele N81.11 Active 126349256 Problem Urinary, incontinence, stress female N39.3 Active 80495750 Problem Pelvic congestion syndrome N94.89 Active 41945450 Problem H/O thyroid nodule Z86.39 Active 852204652 Problem Bipolar 2 disorder F31.81 Active 33852462 Problem Atypical squamous cells of undetermined significance on cytologic smear of cervix (ASC-US) R87.610 Active 687878379 ALLERGIES Substance Reaction Event Type Date Status Vicodin stomach upset Drug Allergy Feb, Active Macrobid itching Drug Allergy Feb, Active SOCIAL HISTORY No smoking Hx information available PLAN OF CARE Activity Details Follow Up prn Reason:FU with PCP VITAL SIGNS Height 5'4" in 2016-03-04 Weight 95.4 lbs 2016-03-04 Heart Rate 78 bpm 2016-03-04 Respiratory Rate 16 2016-03-04 BMI 16.37 kg/m2 2016-03-04 Blood pressure systolic 98 mmHg 2016-03-04 Blood pressure diastolic 62 mmHg 2016-03-04 MEDICATIONS Unknown Medications RESULTS No Results PROCEDURES Procedure Date Ordered Related Diagnosis Body Site Office Visit, Est Pt., Level 3 Mar 04, 2016 IMMUNIZATIONS No Known Immunizations
--- OUTSIDE RECORDS SUMMARY | 2017-02-25 17:53 | XMS REPORT ---
Author Author MARILUZ HERNDON Organization [facility] [place] Address [address] [place] [address] Care Team Providers Care Crop Insurance Claims Adjuster Name Role Phone HERNDONMARILUZ Rodriguez Unavailable PROBLEMS Type Condition ICD9-CM Code [id number] Code Onset Dates Condition Status SNOMED Code Problem High risk sexual behavior Z72.51 Active 290560184 Problem Bipolar 2 disorder F31.81 Active 20942170 Problem Atypical squamous cells of undetermined significance on cytologic smear of cervix (ASC-US) R87.610 Active 858135478 Problem 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 Active 266653197 Problem 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 773879067 Problem Underweight R63.6 Active 437573940 Problem Goiter E04.9 Active 6910135 Problem Other chronic pain G89.29 Active 03613838 Problem Midline cystocele N81.11 Active 746598319 Problem Irritable bowel syndrome with both constipation and diarrhea K58.0 Active 46541114 Problem Pelvic congestion syndrome N94.89 Active 00934726 Problem Urinary, incontinence, stress female N39.3 Active 09164640 Problem H/O thyroid nodule Z86.39 Active 432290247 ALLERGIES Unknown Allergies SOCIAL HISTORY No smoking Hx information available PLAN OF CARE VITAL SIGNS MEDICATIONS Unknown Medications RESULTS Name Result Date Reference Range Ultrasound : Thyroid 2016-05-20 PROCEDURES No Known procedures IMMUNIZATIONS No Known Immunizations
--- OUTSIDE RECORDS SUMMARY | 2017-02-25 17:54 | XMS REPORT ---
Author Author MARILUZ HERNDON Organization [facility] Address [address] [place] [address] Care Team Providers Care Waterside Worker Name Role Phone KATRINA MARILUZ Unavailable PROBLEMS Type Condition ICD9-CM Code SGP62-IF Code Onset Dates Condition Status SNOMED Code Problem High risk sexual behavior Z72.51 Active 814824795 Problem Bipolar 2 disorder F31.81 Active 83148582 Problem Atypical squamous cells of undetermined significance on cytologic smear of cervix (ASC-US) R87.610 Active 684589170 Problem 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 Active 857702944 Problem 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 936417597 Problem Underweight R63.6 Active 243603643 Problem Goiter E04.9 Active 3114600 Problem Other chronic pain G89.29 Active 54824832 Problem Midline cystocele N81.11 Active 917761945 Problem Irritable bowel syndrome with both constipation and diarrhea K58.0 Active 25712712 Problem Pelvic congestion syndrome N94.89 Active 98932326 Problem Urinary, incontinence, stress female N39.3 Active 86788573 Problem H/O thyroid nodule Z86.39 Active 789854842 ALLERGIES No Information SOCIAL HISTORY Never Assessed PLAN OF CARE VITAL SIGNS MEDICATIONS Unknown Medications RESULTS No Results PROCEDURES No Known procedures IMMUNIZATIONS No Known Immunizations MEDICAL (GENERAL) HISTORY Type Description Date Medical History pelvic congestion syndrome Medical History IBS Medical History heart murmur Medical History Irritable bowel syndrome with both constipation and diarrhea Medical History Underweight Medical History Goiter Medical History Benign neoplasm of right breast Medical History Benign neoplasm of left breast Medical History Bipolar 2 disorder Medical History scoliosis Surgical History x 4 Surgical History Tubal ligation Surgical History partial hysterectomy. Has left ovary remaining/bladder sling 07/03/2016 Hospitalization History hysterectomy 2016
--- OUTSIDE RECORDS SUMMARY | 2017-02-25 17:54 | XMS REPORT ---
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 068275635 Problem Irritable bowel syndrome with both constipation and diarrhea K58.0 Active 87200228 Problem 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 Active 613509372 Problem High risk sexual behavior Z72.51 Active 230748675 Problem Goiter E04.9 Active 7590674 Problem Underweight R63.6 Active 423756080 Problem Midline cystocele N81.11 Active 224207026 Problem Urinary, incontinence, stress female N39.3 Active 81867315 Problem Pelvic congestion syndrome N94.89 Active 64400252 Problem H/O thyroid nodule Z86.39 Active 239355448 Problem Bipolar 2 disorder F31.81 Active 16924572 Problem Atypical squamous cells of undetermined significance on cytologic smear of cervix (ASC-US) R87.610 Active 015521242 ALLERGIES Unknown Allergies SOCIAL HISTORY No smoking Hx information available PLAN OF CARE VITAL SIGNS MEDICATIONS Unknown Medications RESULTS No Results PROCEDURES No Known procedures IMMUNIZATIONS No Known Immunizations
--- OUTSIDE RECORDS SUMMARY | 2017-02-25 17:54 | XMS REPORT ---
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
--- OUTSIDE RECORDS SUMMARY | 2017-02-25 17:55 | XMS REPORT ---
Author Author TIMI JENKINS [facility] Address [address] [place] [address] Care Team Providers Care Field Ring Assembler Name Role Phone TIMI JENKINS Unavailable PROBLEMS Type Condition ICD9-CM Code [id number] Code Onset Dates Condition Status SNOMED Code Problem High risk sexual behavior Z72.51 Active 114909712 Problem Bipolar 2 disorder F31.81 Active 93554301 Problem Atypical squamous cells of undetermined significance on cytologic smear of cervix (ASC-US) R87.610 Active 128830714 Problem 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 Active 257624198 Problem 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 240710302 Problem Underweight R63.6 Active 976851872 Problem Goiter E04.9 Active 3743878 Problem Other chronic pain G89.29 Active 06248334 Problem Midline cystocele N81.11 Active 608411597 Problem Irritable bowel syndrome with both constipation and diarrhea K58.0 Active 82547336 Problem Pelvic congestion syndrome N94.89 Active 84931773 Problem Urinary, incontinence, stress female N39.3 Active 44638203 Problem H/O thyroid nodule Z86.39 Active 655945233 ALLERGIES Substance Reaction Event Type Date Status Vicodin stomach upset Drug Allergy May, Active Macrobid itching Drug Allergy May, Active SOCIAL HISTORY Never Assessed PLAN OF CARE Activity Details Follow Up prn Reason: VITAL SIGNS Height 5'4" in 2016-06-02 Weight 95.2 lbs 2016-06-02 Temperature 97.9 degrees Fahrenheit 2016-06-02 Heart Rate 74 bpm 2016-06-02 Respiratory Rate 18 2016-06-02 BMI 16.34 kg/m2 2016-06-02 Blood pressure systolic 94 mmHg 2016-06-02 Blood pressure diastolic 56 mmHg 2016-06-02 MEDICATIONS Medication Instructions Dosage Frequency Start Date End Date Duration Status Bacitracin 500 UNIT/GM Ophthalmic four times per day 1 application MayJun, 7 days Active RESULTS No Results PROCEDURES No Known procedures [...]
[2017-02-25 18:16] LABS: BILIRUBIN,URINE NEGATIVE (NEGATIVE); KETONES,URINE NEGATIVE (NEGATIVE); LEUKOCYTE ESTERASE ,URINE 3+ (NEGATIVE); NITRITE,URINE NEGATIVE (NEGATIVE); PH,URINE 5 (5-9); PROTEIN,URINE 2+ (NEGATIVE); UROBILINOGEN,URINE NORMAL (NORMAL)
[2017-02-25 18:38] LABS: WBC,URINE 50-100 /HPF
[2017-02-25] MEDS ORDERED: CEPHALEXIN 250 MG (KEFLEX) CAP PO STA (18:48)
[2017-02-25] MEDS ORDERED: PHENAZOPYRIDINE 100 MG (PYRIDIUM) TABLET PO STA (18:48)
[2017-02-25] MEDS ORDERED: CEPH500T PO (18:55)
[2017-02-25] MEDS ORDERED: PHEN-639 PO (18:55)
--- NOTE | 2017-02-25 18:55 | ED GU-Female ---
General Chief Complaint: -Female Stated Complaint: BLOOD IN URINE Nursing Triage Note: PT CO OF BLOOD IN URINE, PAIN AND BURNING UPON URINATION, STARTED TODAY Nursing Sepsis Screen: No Definite Risk Source: patient Exam Limitations: no limitations History of Present Illness Time seen by provider: 18:40 Initial Comments Here with report of pressure/pain to the area of the bladder and burning with urination. Did have some blood in the urine today. All of these are similar to when she had a urinary tract infection 1 month ago. States this is typically related to when she has sexual activity but says that that hasn't happened recently so she is not sure of the cause. Previously on Keflex which worked. Denies nausea, vomiting, diarrhea or fever. Timing/Duration: this morning Severity/Quality: moderate Location: suprapubic Radiation: urethral Activities at Onset: none Sexual [place] History: less than 2 months ago, single partner Associated Symptoms: dysuria, No fever/chills, No nausea/vomiting, urinary frequency Allergies and Home Medications Allergies Coded Allergies: acetaminophen (Verified Allergy, Unknown, 06/07/16) hydrocodone (Verified Allergy, Unknown, 06/07/16) nitrofurantoin (Verified Allergy, Unknown, 06/07/16) Home Medications Amoxicillin 500 Mg Capsule, 500 MG PO TID, #21 Prescribed by: PAWAN PULIDO on 11/06/162120 Docusate Sodium 100 Mg Capsule, 100 MG PO BID, #60 Prescribed by: EDUARDO CASTRO on 07/04/16 0809 Ibuprofen 800 Mg Tablet, 800 MG PO Q6HR, #60 Prescribed by: EDUARDO CASTRO on 07/04/16 0809 Naproxen 500 Mg Tablet, 500 MG PO BID, #30 Prescribed by: PAWAN PULIDO on 11/06/161 Oxycodone HCl/Acetaminophen 1 Each Tablet, 1-2 TAB PO Q4H, #60 Prescribed by: EDUARDO CASTRO on 07/04/16 0809 Constitutional: see HPI, No chills, No fever Respiratory: no symptoms reported Cardiovascular: no symptoms reported Gastrointestinal: see HPI Genitourinary: see HPI : No Musculoskeletal: no symptoms reported Past Arbshah-Trkega-Xavmmr Hx Patient Social History Alcohol Use: Denies Use Recreational Drug Use: No Smoking Status: Current Everyday Smoker Type Used: Cigarettes 2nd Hand Smoke Exposure: Yes Recent Foreign Travel: No Contact w/Someone Who Travel: No Recent Infectious Disease Expo: No Recent Hopitalizations: No Physical Abuse: No Sexual Abuse: No Immunizations Up To Date Tetanus Booster (TDap): Less than 5yrs Seasonal Allergies Seasonal Allergies: No Surgeries History of Surgeries: Yes (c/s x4, ) Surgeries: Bladder Surgery, Section, Hysterectomy, Tubal Ligation Respiratory History of Respiratory Disorde: No Cardiovascular History of Cardiac Disorders: Yes Cardiac Disorders: Heart Murmur Neurological History of Neurological Disord: No Reproductive System Hx Reproductive Disorders: Yes Gastrointestinal History of Gastrointestinal Di: Yes (upper right quad pain for 6 years unable to figure out from what) Gastrointestinal Disorders: Irritable Bowel Musculoskeletal History of Musculoskeletal Dis: No Endocrine History of Endocrine Disorders: No (nodule on right side of thyroid no change in size in past year) Cancer History of Cancer: No Psychosocial History of Psychiatric Problem: No Suicide Risk Score: 0 Integumentary History of Skin or Integumenta: No Blood Transfusions History of Blood Disorders: No (hx of anemia) Reviewed Nursing Assessment Reviewed/Agree w Nursing PMH: Yes Family Medical History Significant Family History: No Pertinent Family Hx Family Medial History: Arthritis 19 FATHER Asthma G8 BROTHER Drug abuse 19 FATHER Hypertension 19 MOTHER Respiratory disorder 19 MOTHER Physical Exam Vital Signs Vital Sign - Last 12Hours 02/25/17 18:05 Temp 98.1 Pulse 90 Resp 18 B/P (MAP) 112/55 Capillary Refill : Less Than 3 Seconds General Appearance: WD/WN, no apparent distress Cardiovascular: regular rate, rhythm, no murmur Respiratory: lungs clear, normal breath sounds Gastrointestinal: soft, tenderness (very mild suprapubic area) Back: normal inspection, no CVA tenderness, no vertebral tenderness Neurologic/Psychiatric: alert, oriented x 3 Progress/Results/Core Measures Suspected Sepsis Recent Fever Within 48 Hours: No Infection Criteria Present: None New/Unexplained Altered Menta: No Sepsis Screen: No Definite Risk Sepsis Diagnosis: SIRS Temperature:98.1 Pulse: 90 Respiratory Rate: 18 Blood Pressure 112 /55 Mean: 74 Results/Orders Lab Results Laboratory Tests Test 02/25/17 18:10 Range/Units Urine Color YELLOW Urine Clarity VERY CLOUDY H Urine pH 5 5-9 Urine Specific [place] 1.010 L 1.016-1.022 Urine Protein 2+ H NEGATIVE Urine Glucose (UA) NEGATIVE NEGATIVE Urine Ketones NEGATIVE NEGATIVE Urine Nitrite NEGATIVE NEGATIVE Urine Bilirubin NEGATIVE NEGATIVE Urine Urobilinogen NORMAL NORMAL MG/DL Urine Leukocyte Esterase 3+ H NEGATIVE Urine RBC (Auto) 5+ H NEGATIVE Urine RBC 25-50 H /HPF Urine WBC 50-100 H /HPF Urine Squamous Epithelial Cells 2-5 /HPF Urine Crystals NONE /LPF Urine Bacteria FEW H /HPF Urine Casts NONE /LPF Urine Mucus NEGATIVE /LPF Urine Culture Indicated YES My Orders Orders - JESUS ACOSTA MD Ua Culture If Indicated (02/25/17 18:10) Urine Culture (02/25/17 18:10) Cephalexin Capsule (Keflex Capsule) (02/25/17 18:48) Phenazopyridine Tablet (Pyridium Tablet) (02/25/17 18:48) Vital Signs/I&O Vital Sign - Last 12Hours 02/25/17 18:05 Temp 98.1 Pulse 90 Resp 18 B/P (MAP) 112/55 Capillary Refill : Less Than 3 Seconds Blood Pressure Mean: 74 Progress Note : Progress Note Seen and evaluated. UA ordered. UTI noted. Keflex 500 mg by mouth and Pyridium 100 mg by mouth. Discharged home with return precautions. Patient verbalize understanding instructions and agreement with plan. Departure Impression Impression: Primary Impression: Urinary tract infection Qualified Codes: N30.01 - Acute cystitis with hematuria Disposition: HOME, SELF-CARE Condition: Improved Departure-Patient Inst. Decision time for Depature: 18:53 Referrals: DAYAMI MCALLISTER MD (PCP/Family) Primary Care Physician Patient Instructions: Urinary Tract Infection, Adult (DC) Add. Discharge Instructions: All discharge instructions reviewed with patient and/or family. Voiced understanding. Take medications as directed. You may take ibuprofen 600 mg every 8 hours as needed for pain. Drink plenty of fluids. Follow up with your Dr. in a few days for recheck as needed. Return for worse pain, fever, vomiting, weakness, breathing problems or other concerns as needed. Scripts Phenazopyridine HCl (Pyridium) 100 Mg Tablet 100 MG PO Q8H Y for PAIN-MILD TO MODERATE, #8 TAB 0 Refills Prov: JESUS ACOSTA MD 02/25/17 Cephalexin (Cephalexin) 500 Mg Tablet 500 MG PO BID, #14 TAB 0 Refills Prov: JESUS ACOSTA MD 02/25/17 JESUS ACOSTA MD Feb 25, 2017 18:55
[2017-02-25 19:01] VITALS: BP 112/55
== END 2017-02-25 19:00 | disposition home or self-care (01) ==
LOC: EDUNIT# 17:47 → ER 17:50
DX: N39.0 Urinary tract infection, site not specified (principal); F17.210 Nicotine dependence, cigarettes, uncomplicated; Z87.59 Personal history of other complications of pregnancy, childbirth and the puerperium; Z90.710 Acquired absence of both cervix and uterus; Z98.51 Tubal ligation status; Z87.19 Personal history of other diseases of the digestive system
CPT/HCPCS: 81000; 87088; 99283

== ENCOUNTER → 2017-04-01 | Outpatient (CLI) | payer MEDICAID ==
[~2017-04-01] MED LIST changes: +CEPH500T PO; +NAPR-1071 PO; -NAPR500T PO; +PHEN-639 PO
--- NOTE | 2017-04-01 13:18 | Diagnostic Imaging Report ---
PROCEDURE: US Gallbladder. TECHNIQUE: Multiple real-time grayscale images were obtained over the right upper quadrant in various projections. INDICATION: Right upper quadrant pain. FINDINGS: The pancreas is largely obscured. The liver is fairly homogeneous and no focal lesion seen. The gallbladder demonstrates no stones or wall thickening. No pericholecystic fluid. Sonographic Lima's sign is negative. The CBD is 2 mm in caliber. No fluid collection in the upper right abdomen. The right kidney is 11.5 cm in length with no hydronephrosis or focal lesion seen. IMPRESSION: Unremarkable exam. Dictated by: Dictated on workstation # [id number]
== END ==
LOC: RAD 07:58
PROVIDERS: ATTEND Obstetrics & Gynecology
DX: R10.11 Right upper quadrant pain (principal)
CPT/HCPCS: 76705

== ENCOUNTER 2017-04-06 11:12 | Outpatient (CLI) | payer MEDICAID ==
[~2017-04-06] VITALS: Ht 162.6 cm; Wt 44.9 kg
[2017-04-06] MEDS ORDERED: QUET25TA PO (12:18)
[2017-04-07] MEDS ORDERED: OXYC-465 PO (11:57)
[2017-04-07] MEDS ORDERED: IBUP-1780 PO (11:57)
== END 2017-04-06 14:03 ==
LOC: PREOP 11:12
PROVIDERS: ATTEND Obstetrics & Gynecology
DX: Z01.818 Encounter for other preprocedural examination (principal); R10.2 Pelvic and perineal pain; D64.9 Anemia, unspecified

== ENCOUNTER → 2017-04-15 | Outpatient (CLI) | payer MEDICAID ==
[~2017-04-15] MED LIST changes: +CATHETER FLUSH 10 ML SYR IV PRN; +QUET25TA PO
--- NOTE | 2017-04-15 12:20 | Diagnostic Imaging Report ---
INDICATION: Right upper quadrant pain. FINDINGS: The patient was administered 4.73 mCi of Tc 99m Choletec and sequential imaging was performed over the right upper abdomen. There is progressive, homogeneous accumulation of radiotracer within the liver parenchyma. There is filling of the bile ducts and subsequent filling of the gallbladder. There is progressive clearance of activity from the liver parenchyma and accumulation of radiotracer within loops of small bowel. The patient was then administered a fatty meal, utilizing 8 ounces of Ensure. The gallbladder ejection fraction was calculated to be approximately 66%. (Normal values post fatty meal stimulation are 33% or greater.) IMPRESSION: 1. Hepatobiliary scan demonstrates a patent biliary tree. 2. Normal gallbladder ejection fraction of approximately 66%. Dictated by: Dictated on workstation # [id number]
== END ==
LOC: RAD 09:44
PROVIDERS: ATTEND Obstetrics & Gynecology
DX: R10.11 Right upper quadrant pain (principal); R10.31 Right lower quadrant pain
CPT/HCPCS: 78227

== ENCOUNTER → 2017-05-21 | Outpatient (CLI) | payer MEDICAID ==
[~2017-05-21] MED LIST changes: -CATHETER FLUSH 10 ML SYR IV PRN
--- NOTE | 2017-05-21 12:13 | Diagnostic Imaging Report ---
PROCEDURE: US Thyroid. TECHNIQUE: Multiple real-time grayscale images were obtained of the thyroid in various projections. INDICATION: Goiter. COMPARISON is made with prior exam from 05/20/2016. FINDINGS: Both lobes of the thyroid gland are enlarged, with the right lobe measuring 6.1 x 1.3 x 2.1 cm and the left lobe measuring 5.9 x 1.2 x 1.5 cm. Both lobes are fairly homogeneous. The hypoechoic nodule in the upper pole of the right lobe is stable in size at 8 mm x 5 mm x 5 mm. No new mass is identified. IMPRESSION: Stable thyroid ultrasound and right lobe thyroid nodule when compared with the examination of one year earlier. Dictated by: Dictated on workstation # [id number]
== END ==
LOC: RAD 11:16
PROVIDERS: ATTEND Family Medicine
DX: E04.1 Nontoxic single thyroid nodule (principal)
CPT/HCPCS: 76536

== ENCOUNTER 2018-02-14 10:22 | Emergency (ER) | payer SELFPAY ==
[~2018-02-14] VITALS: Ht 162.6 cm; Wt 42.2 kg
--- OUTSIDE RECORDS SUMMARY | 2018-02-14 10:28 | XMS REPORT ---
Author Author DAYAMI MCALLISTER Organization [facility] Address [address] [place] [address] Care Team Providers Care Foundry Patternmaker Name Role Phone DAYAMI MCALLISTER Unavailable PROBLEMS Type Condition ICD9-CM Code [id number] Code Onset Dates Condition Status SNOMED Code Problem Atypical squamous cells of undetermined significance on cytologic smear of cervix (ASC-US) R87.610 Active 338648442 Problem Pelvic congestion syndrome N94.89 Active 43441752 Problem Bipolar 2 disorder F31.81 Active 97682827 Problem Pain of right thumb M79.644 Active 3697726965908935 Problem Other chronic pain G89.29 Active 26589432 Problem H/O thyroid nodule Z86.39 Active 789773073 Problem Irritable bowel syndrome with both constipation and diarrhea K58.0 Active 05106032 Problem Urinary, incontinence, stress female N39.3 Active 08474867 Problem Midline cystocele N81.11 Active 481856803 Problem 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 Active 646429523 Problem 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 076196081 Problem Underweight R63.6 Active 198717704 Problem Goiter E04.9 Active 2906659 Problem High risk sexual behavior Z72.51 Active 665788529 ALLERGIES Substance Reaction Event Type Date Status Vicodin stomach upset Drug Allergy August, Active Macrobid itching Drug Allergy August, Active ENCOUNTERS Encounter Location Date Diagnosis [facility] [address] [facility] [id number], [place] [address] August, Pain of right thumb M79.644 and Sprain of metacarpophalangeal (MCP) joint of right thumb, subsequent encounter S63.641D [facility] [address] [facility] [id number], [place] [address] August, [facility] [address] [id number] [place] [phone] August, Right hand pain M79.641 [facility] [id number] [place] [phone] August, Right hand pain M79.641 [facility] [id number] [place] [phone] Jun, Pain in right shoulder M25.511 ; Other chronic pain G89.29 and Tobacco use Z72.0 [facility] [address] [address] May, [facility] [address] [address] May, Athlete's foot on left B35.3 [place] [address] [address] May, Right leg pain M79.604 and Goiter E04.9 [place] [id number] [place] [phone] Jan, H/O thyroid nodule Z86.39 ; Pain in right shoulder M25.511 ; Other chronic pain G89.29 and Tobacco use Z72.0 [place] [id number] [place] [phone] Jan, [facility] [id number] [place] [phone] 27 Dec, 2016 Biceps tendonitis on right M75.21 [facility] [id number] [place] [phone] 14 Dec, 2016 Pain in right shoulder M25.511 and Other chronic pain G89.29 [facility] [id number] [place] [phone] Oct, Low back pain M54.5 [place] [address] [address] Sep, [place] [id number] [place] [phone] Sep, Acute midline low back pain without sciatica M54.5 and Acne vulgaris L70.0 [place] [address] [address] August, Encounter for screening breast examination Z12.39 and Breast tenderness N64.4 [place] [address] [address] August, [place] [address] [address] August, Blepharitis of left lower eyelid, unspecified type H01.005 and Hordeolum externum left lower eyelid H00.[address] [address] Jun, H/O thyroid nodule Z86.39 [facility] [address] [address] May, Hordeolum externum of left lower eyelid H00.[address] [address] 07 May, 2016 Goiter E04.9 and H/O thyroid nodule Z86.[id number] [place] [phone] Mar, [facility] [id number] [place] [phone] Feb, Midline cystocele N81.11 and Urinary, incontinence, stress female N39.[address] [address] Jan, Examination, follow-up for injury Z09 [facility] [place] [id number] [place] [phone] Nov, Lumbago with sciatica, left side M54.42 and Lumbago with sciatica, right side M54.41 [place] [id number] [address] Nov, [place] [address] [place] [phone] Nov, Atypical squamous cells of undetermined significance on cytologic smear of cervix (ASC-US) R87.610 [place] [address] [place] [address] Nov, Routine health maintenance Z00.00 ; Bipolar 2 disorder F31.81 ; Atypical squamous cells of undetermined significance on cytologic smear of cervix (ASC-US) R87.610 ; Goiter E04.9 ; Underweight R63.6 ; Pelvic congestion syndrome N94.89 ; H/O thyroid nodule Z86.39 and Irritable bowel syndrome with both constipation and diarrhea K58.0 [address] [place] [address] Nov, Encounter for well woman exam Z01.419 ; Underweight R63.6 ; Goiter E04.9 ; Routine health maintenance Z00.00 ; Encounter for gynecological examination without abnormal finding Z01.419 ; Encounter for screening breast examination Z12.39 ; Encounter for special screening examination for neoplasm of breast Z12.39 ; 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 ; Encounter for screening for malignant neoplasm of cervix Z12.4 ; Benign neoplasm of right breast D24.1 ; High risk sexual behavior Z72.51 and Screen for STD (sexually transmitted disease) Z11.3 [place] [address] [place] [address] [id number] [place] [phone] Oct, Encounter for well woman exam Z01.419 ; Encounter for gynecological examination without abnormal finding Z01.419 ; Encounter for screening breast examination Z12.39 ; Encounter for screening for malignant neoplasm of cervix Z12.4 ; 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 ; Benign neoplasm of right breast D24.1 ; Underweight R63.6 ; Goiter E04.9 ; Routine health maintenance Z00.00 ; High risk sexual behavior Z72.51 and Screen for STD (sexually transmitted disease) Z11.3 IMMUNIZATIONS No Known Immunizations SOCIAL HISTORY Never Assessed REASON FOR VISIT Arthritis- pt was called yesterday about xrays done wednesday on right thumb.- ariel, Pt fell and came here Wednesday to walk in, came back wednesday for xray then went to [facility] and they stated it was soft tissue damage. Pt can't move thumb, radiating pain. -ariel PLAN OF CARE Activity Details Follow Up prn Reason: VITAL SIGNS Height 64 in 2017-08-18 Weight 97.7 lbs 2017-08-18 Temperature 98.3 degrees Fahrenheit 2017-08-18 Heart Rate 65 bpm 2017-08-18 Respiratory Rate 18 2017-08-18 BMI 16.77 kg/m2 2017-08-18 Blood pressure systolic 110 mmHg 2017-08-18 Blood pressure diastolic 70 mmHg 2017-08-18 MEDICATIONS Medication Instructions Dosage Frequency Start Date End Date Duration Status Tramadol HCl 50 mg Orally every 6 hrs 1 tablet as needed 6h August, August, 14 days Active BuPROPion HCl 100 mg Orally twice a day 1 tablet daily x 4 days then BID 12h Jun, 30 day(s) Not-Taking Seroquel 25 MG Orally Once a day 1 tablet 24h 30 days Not-Taking Estradiol 2 MG Orally 2 times a day 1 tablet 12h Active RESULTS No Results PROCEDURES No Known procedures INSTRUCTIONS MEDICATIONS ADMINISTERED No Known Medications MEDICAL (GENERAL) HISTORY Type Description Date Medical [...] hysterectomy. Has left ovary remaining/bladder sling 07/03/2016 Surgical History ovary removal and appedix removal 04/2017 Hospitalization History hysterectomy 2016
--- OUTSIDE RECORDS SUMMARY | 2018-02-14 10:29 | XMS REPORT ---
Author Author LYNDON DELGADO [facility] IN [facility] Address [address] [place] [address] Care Team Providers Care Supervisor Poultry Farm Name Role Phone LYNDON DELGADO Unavailable PROBLEMS Type Condition ICD9-CM Code [id number] Code Onset Dates Condition Status SNOMED Code Problem Atypical squamous cells of undetermined significance on cytologic smear of cervix (ASC-US) R87.610 Active 209819115 Problem Pelvic congestion syndrome N94.89 Active 47803220 Problem Bipolar 2 disorder F31.81 Active 54863897 Problem Pain of right thumb M79.644 Active 7436469018639866 Problem Other chronic pain G89.29 Active 59863975 Problem H/O thyroid nodule Z86.39 Active 293073575 Problem Irritable bowel syndrome with both constipation and diarrhea K58.0 Active 22871780 Problem Urinary, incontinence, stress female N39.3 Active 26652429 Problem Midline cystocele N81.11 Active 433011951 Problem 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 Active 521409056 Problem 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 121755321 Problem Underweight R63.6 Active 170461993 Problem Goiter E04.9 Active 1656169 Problem High risk sexual behavior Z72.51 Active 171607522 ALLERGIES Substance Reaction Event Type Date Status Vicodin stomach upset Drug Allergy August, Active Macrobid itching Drug Allergy August, Active ENCOUNTERS Encounter Location Date Diagnosis [facility] [address] [facility] [id number], [place] [address] August, Pain of right thumb M79.644 and Sprain of metacarpophalangeal (MCP) joint of right thumb, subsequent encounter S63.641D [facility] [address] [facility] [id number], [place] [address] August, [facility] [address] [id number] [place] [address] 14 Aug, 2017 Right hand pain M79.641 [facility] [id number] [place] [address] August, Right hand pain M79.641 [facility] [id number] [place] [address] 68962[address] 7873 Jun, Pain in right shoulder M25.511 ; Other chronic pain G89.29 and Tobacco use Z72.0 [facility] [id number] [place] [address] 84284[address] May, [facility] [address] [address] May, Athlete's foot on left B35.3 [place] [address] [id number] [place] [address] 09967[address] 4066 May, Right leg pain M79.604 and Goiter E04.9 [place] [address] [id number] [place] [address]10[address] 8699 Jan, H/O thyroid nodule Z86.39 ; Pain in right shoulder M25.511 ; Other chronic pain G89.29 and Tobacco use Z72.0 [place] [id number] [place] [address] 16156[address] 4281 Jan, [facility] [id number] [place] [address]9611[address] 7[address] 27 Dec, 2016 Biceps tendonitis on right M75.21 [facility] [id number] [place] [address]758 [address] 14 Dec, 2016 Pain in right shoulder M25.511 and Other chronic pain G89.29 [facility] [id number] [place] [address] 50226- 7284 Oct, Low back pain M54.5 [facility] [id number] [place] [address]28[address]96 Sep, [place] [id number] [place] [address] 61866[address] 5714 Sep, Acute midline low back pain without sciatica M54.5 and Acne vulgaris L70.0 [place] [id number] [place] [address] 08456[address] 5575 August, Encounter for screening breast examination Z12.39 and Breast tenderness N64.[address] [address] August, [address] [address] August, Blepharitis of left lower eyelid, unspecified type H01.005 and Hordeolum externum left lower eyelid H00.[address] 17348[address]10 Jun, H/O thyroid nodule Z86.39 [facility] [place] [id number] [place] [address]18 [address] May, Hordeolum externum of left lower eyelid H00.[address] 28383- 1529 07 May, 2016 Goiter E04.9 and H/O thyroid nodule Z86.39 [address] [place] [id number] Mar, [facility] [id number] [place] [id number] Feb, Midline cystocele N81.11 and Urinary, incontinence, stress female N39.[address] 95835- 60[address] Jan, Examination, follow-up for injury Z09 [facility] [place] [id number] [place] [address] 64751 [address]3512 Nov, Lumbago with sciatica, left side M54.42 and Lumbago with sciatica, right side M54.41 [place] [address] [place] [address] 14426- 8153 Nov, [address] [place] [address] 50347[address] 6226 Nov, Atypical squamous cells of undetermined significance on cytologic smear of cervix (ASC-US) R87.610 [place] [address] [place] [address] 89869- 3590 Nov, Routine health maintenance Z00.00 ; Bipolar 2 disorder F31.81 ; Atypical squamous cells of undetermined significance on cytologic smear of cervix (ASC-US) R87.610 ; Goiter E04.9 ; Underweight R63.6 ; Pelvic congestion syndrome N94.89 ; H/O thyroid nodule Z86.39 and Irritable bowel syndrome with both constipation and diarrhea K58.0 [address] [place] [address] 35349- 0878 Nov, Encounter for well woman exam Z01.419 [...] Screen for STD (sexually transmitted disease) Z11.3 [place] [address] [place] [address] 63881- 2843 Oct, Encounter for well woman exam Z01.419 [...] SOCIAL HISTORY Never Assessed REASON FOR VISIT right hand pain from the base of her hand to the tip of her thumb. reports she fell into a door. laly PLAN OF CARE Activity Details Follow Up prn Reason: VITAL SIGNS Height 64 in 2017-08-15 Weight 96.8 lbs 2017-08-15 Temperature 98.1 degrees Fahrenheit 2017-08-15 Heart Rate 88 bpm 2017-08-15 Respiratory Rate 20 2017-08-15 BMI 16.61 kg/m2 2017-08-15 Blood pressure systolic 110 mmHg 2017-08-15 Blood pressure diastolic 68 mmHg 2017-08-15 MEDICATIONS Medication Instructions Dosage Frequency Start Date End Date Duration Status Seroquel 25 MG Orally Once a day 1 tablet 24h 30 days Not-Taking Estradiol 2 MG Orally 2 times a day 1 tablet 12h Active BuPROPion HCl 100 mg Orally twice a day 1 tablet daily x 4 days then BID 12h Jun, 30 day(s) Not-Taking RESULTS No Results PROCEDURES No Known procedures [...]
--- OUTSIDE RECORDS SUMMARY | 2018-02-14 10:29 | XMS REPORT ---
Author Author DAYAMI MCALLISTER Organization [facility] Address [address] [place] [address] Care Team Providers Care Bag Machine Operator Helper Name Role Phone DAYAMI MCALLISTER Unavailable PROBLEMS Type Condition ICD9-CM Code WPI55-VJ Code Onset Dates Condition Status SNOMED Code Problem Atypical squamous cells of undetermined significance on cytologic smear of cervix (ASC-US) R87.610 Active 504389769 Problem Pelvic congestion syndrome N94.89 Active 54807503 Problem Bipolar 2 disorder F31.81 Active 24996648 Problem Pain of right thumb M79.644 Active 4163041677465317 Problem Other chronic pain G89.29 Active 77975378 Problem H/O thyroid nodule Z86.39 Active 554697632 Problem Irritable bowel syndrome with both constipation and diarrhea K58.0 Active 06526540 Problem Urinary, incontinence, stress female N39.3 Active 36736529 Problem Midline cystocele N81.11 Active 726391174 Problem 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 Active 236632964 Problem 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 139750530 Problem Underweight R63.6 Active 985424216 Problem Goiter E04.9 Active 5051892 Problem High risk sexual behavior Z72.51 Active 328328696 ALLERGIES Substance Reaction Event Type Date Status Vicodin stomach upset Drug Allergy Jun, Active Macrobid itching Drug Allergy Jun, Active ENCOUNTERS Encounter Location Date Diagnosis [facility] [address] [facility] [id number] [address] August, Pain of right thumb M79.644 and Sprain of metacarpophalangeal (MCP) joint of right thumb, subsequent encounter S63.641D [facility] [address] [facility] [id number], [place] [address] August, [facility] [address] [facility] [id number] [place] [address]27[address] August, Right hand pain M79.641 [facility] [id number] [place] [address]11 [address] August, Right hand pain M79.641 [facility] [id number] [place] [address] 27994- 5043 Jun, Pain in right shoulder M25.511 ; Other chronic pain G89.29 and Tobacco use Z72.0 [facility] [address] [address] May, [facility] [address] [address] May, Athlete's foot on left B35.3 [place] [address] 55080[address] 3114 May, Right leg pain M79.604 and Goiter E04.9 [place] [address] [address] [id number] [place] [address] 57339- 8420 Jan, H/O thyroid nodule Z86.39 ; Pain in right shoulder M25.511 ; Other chronic pain G89.29 and Tobacco use Z72.0 [place] [address] [id number] [place] [address] 71738- 6344 Jan, [facility] [id number] [place] [address] 58269- 7349 27 Dec, 2016 Biceps tendonitis on right M75.21 [facility] WALK IN [facility] [id number] [place] [address] 69699 -3873 14 Dec, 2016 Pain in right shoulder M25.511 and Other chronic pain G89.29 [facility] [address] [id number] [place] [address] 22422- 7909 Oct, Low back pain M54.5 [place] [address] 39626- 3713 Sep, [place] [address] [address] [id number] [place] [address] 02307- 9132 Sep, Acute midline low back pain without sciatica M54.5 and Acne vulgaris L70.0 [place] [address] 82216- 3402 August, Encounter for screening breast examination Z12.39 and Breast tenderness N64.4 [place] [address] 25788- 2423 August, [place] [address] 57770- 5957 August, Blepharitis of left lower eyelid, unspecified type H01.005 and Hordeolum externum left lower eyelid H00.[address] [address]- [address] Jun, H/O thyroid nodule Z86.39 [facility] IN [address] [address] May, Hordeolum externum of left lower eyelid H00.[address] 36654- [address]74 07 May, 2016 Goiter E04.9 and H/O thyroid nodule Z86.39 [address] [place] [id number] Mar, [facility] [id number] [place] [address] [phone] Feb, Midline cystocele N81.11 and Urinary, incontinence, stress female N39.[address] 74713- 2275 Jan, Examination, follow-up for injury Z09 [facility] [place] [address] [id number] [place] [address]2042 -8782 Nov, Lumbago with sciatica, left side M54.42 and Lumbago with sciatica, right side M54.41 [place] [address] [id number] [address] Nov, [place] [address] [place] [address] 18636- 1800 Nov, Atypical squamous cells of undetermined significance on cytologic smear of cervix (ASC-US) R87.610 [place] [address] [place] [address] 50474- 9389 Nov, Routine health maintenance Z00.00 ; Bipolar 2 disorder F31.81 ; Atypical squamous cells of undetermined significance on cytologic smear of cervix (ASC-US) R87.610 ; Goiter E04.9 ; Underweight R63.6 ; Pelvic congestion syndrome N94.89 ; H/O thyroid nodule Z86.39 and Irritable bowel syndrome with both constipation and diarrhea K58.0 [address] [place] [address] 14334- 4019 Nov, Encounter for well woman exam Z01.419 [...] Screen for STD (sexually transmitted disease) Z11.3 [place] [address] [place] [id number] [place] [address] 64470- 7311 Oct, Encounter for well woman exam Z01.419 [...] SOCIAL HISTORY Never Assessed REASON FOR VISIT Shoulder injection-JARROD Martinez PLAN OF CARE Activity Details Follow Up 3 Months with ryan for smoking cessation Reason: VITAL SIGNS Height 64 in 2017-06-28 Weight 99.8 lbs 2017-06-28 Temperature 98 degrees Fahrenheit 2017-06-28 Heart Rate 80 bpm 2017-06-28 Respiratory Rate 18 2017-06-28 BMI 17.13 kg/m2 2017-06-28 Blood pressure systolic 88 mmHg 2017-06-28 Blood pressure diastolic 58 mmHg 2017-06-28 MEDICATIONS Medication Instructions Dosage Frequency Start Date End Date Duration Status BuPROPion HCl 100 mg Orally twice a day 1 tablet daily x 4 days then BID 12h Jun, 30 day(s) Active Estradiol 2 MG Orally 2 times a day 1 tablet 12h Active Seroquel 25 MG Orally Once a day 1 tablet 24h 30 days Active RESULTS No Results PROCEDURES Procedure Date Ordered Result Body Site INJECT TENDON ORIGIN/INSERT June 28, 2017 KENALOG 40 MG/ML (PER 10 MG) June 28, 2017 INSTRUCTIONS MEDICATIONS ADMINISTERED No Known Medications MEDICAL [...]
--- OUTSIDE RECORDS SUMMARY | 2018-02-14 10:29 | XMS REPORT ---
Author Author DAYAMI MCALLISTER Organization [facility] Address [address] [place] [address] Care Team Providers Care Hyperion Administrator Name Role Phone DAYAMI MCALLISTER Unavailable PROBLEMS Type Condition ICD9-CM Code ZRW38-WS Code Onset Dates Condition Status SNOMED Code Problem Atypical squamous cells of undetermined significance on cytologic smear of cervix (ASC-US) R87.610 Active 243531384 Problem Pelvic congestion syndrome N94.89 Active 60056840 Problem Bipolar 2 disorder F31.81 Active 21739312 Problem Pain of right thumb M79.644 Active 6375797975924614 Problem Other chronic pain G89.29 Active 60660036 Problem H/O thyroid nodule Z86.39 Active 546738814 Problem Irritable bowel syndrome with both constipation and diarrhea K58.0 Active 60340011 Problem Urinary, incontinence, stress female N39.3 Active 65389945 Problem Midline cystocele N81.11 Active 061804479 Problem 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 Active 665859032 Problem 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 278446503 Problem Underweight R63.6 Active 277353102 Problem Goiter E04.9 Active 7360761 Problem High risk sexual behavior Z72.51 Active 526067701 ALLERGIES No Information ENCOUNTERS Encounter Location Date Diagnosis [facility] [id number] [place] [address] August, Pain of right thumb M79.644 and Sprain of metacarpophalangeal (MCP) joint of right thumb, subsequent encounter S63.641D [facility] [id number] [place] [address] 37788- 3348 August, [facility] [address] [id number] [address] August, Right hand pain M79.641 [facility] [address] [place] [id number] [place] [address] 24420 -5940 August, Right hand pain M79.641 [place] [address] 48394- 3948 Jun, Pain in right shoulder M25.511 ; Other chronic pain G89.29 and Tobacco use Z72.0 [place] [address] [address]- [address] May, [facility] IN [facility] [address] [address] May, Athlete's foot on left B35.3 [place] [address] 41317- 7778 May, Right leg pain M79.604 and Goiter E04.9 [place] [address] 964[address]- 8118 Jan, H/O thyroid nodule Z86.39 ; Pain in right shoulder M25.511 ; Other chronic pain G89.29 and Tobacco use Z72.0 [place] [address] 94315- 5955 Jan, [place] [address] [place] [id number] [place] [address] 88309- 4331 27 Dec, 2016 Biceps tendonitis on right M75.21 [facility] WALK IN [facility] [address] [place] [id number] [place] [address] 01691 -3689 14 Dec, 2016 Pain in right shoulder M25.511 and Other chronic pain G89.29 [place] [address] [address]50- 9437 Oct, Low back pain M54.5 [place] [address] 20700- 9295 Sep, [place] [address] 76580- 9874 Sep, Acute midline low back pain without sciatica M54.5 and Acne vulgaris L70.[address] [address]- 239[address] August, Encounter for screening breast examination Z12.39 and Breast tenderness N64.4 [place] [address] 16893- 2482 August, [address] [address]- [address] August, Blepharitis of left lower eyelid, unspecified type H01.005 and Hordeolum externum left lower eyelid H00.015 [place] [address] 19912- 2098 Jun, H/O thyroid nodule Z86.39 [facility] WALK IN [address] [address] 28 May, 2016 Hordeolum externum of left lower eyelid H00.015 [place] [id number] [place] [address] 77602- 2873 07 May, 2016 Goiter E04.9 and H/O thyroid nodule Z86.39 [place] [id number] [place] [id number] Mar, [address] [id number] Feb, Midline cystocele N81.11 and Urinary, incontinence, stress female N39.3 [place] [id number] [place] [address] 17151- 4216 Jan, Examination, follow-up for injury Z09 [facility] WALK IN [address] [address] Nov, Lumbago with sciatica, left side M54.42 and Lumbago with sciatica, right side M54.[address] [address]- [address] Nov, [place] [address] [facility] [id number] [address] Nov, Atypical squamous cells of undetermined significance on cytologic smear of cervix (ASC-US) R87.610 [place] [address] [place] [id number] [address] Nov, Routine health maintenance Z00.00 ; Bipolar 2 disorder F31.81 ; Atypical squamous cells of undetermined significance on cytologic smear of cervix (ASC-US) R87.610 ; Goiter E04.9 ; Underweight R63.6 ; Pelvic congestion syndrome N94.89 ; H/O thyroid nodule Z86.39 and Irritable bowel syndrome with both constipation and diarrhea K58.0 [place] [address] [place] [id number] [address] Nov, Encounter for well woman exam Z01.419 [...] Screen for STD (sexually transmitted disease) Z11.3 [place] [address] [facility] [id number] [address] Oct, Encounter for well woman exam Z01.419 [...] SOCIAL HISTORY Never Assessed REASON FOR VISIT work note PLAN OF CARE VITAL SIGNS MEDICATIONS No Known Medications RESULTS No Results PROCEDURES No Known [...] and appedix removal 04/2017 Hospitalization History hysterectomy 2017
--- OUTSIDE RECORDS SUMMARY | 2018-02-14 10:30 | XMS REPORT ---
Author Author [facility]YNDON [facility]ADO [facility]ALK IN [facility] Address [address] [place] [address] Care Team Providers Care Platform Worker Name Role Phone SANDYJACKIELYNDON Unavailable PROBLEMS Type Condition ICD9-CM Code [id number] Code Onset Dates Condition Status SNOMED Code Problem Atypical squamous cells of undetermined significance on cytologic smear of cervix (ASC-US) R87.610 Active 842518323 Problem Pelvic congestion syndrome N94.89 Active 55766072 Problem Bipolar 2 disorder F31.81 Active 46598118 Problem Pain of right thumb M79.644 Active 9536914421188531 Problem Other chronic pain G89.29 Active 82110648 Problem H/O thyroid nodule Z86.39 Active 890342921 Problem Irritable bowel syndrome with both constipation and diarrhea K58.0 Active 12181141 Problem Urinary, incontinence, stress female N39.3 Active 27586166 Problem Midline cystocele N81.11 Active 064038710 Problem 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 Active 157046310 Problem 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 234924162 Problem Underweight R63.6 Active 065955585 Problem Goiter E04.9 Active 7136096 Problem High risk sexual behavior Z72.51 Active 212186252 ALLERGIES No Information ENCOUNTERS Encounter Location Date Diagnosis [place] [id number] [place] [address] August, Pain of right thumb M79.644 and Sprain of metacarpophalangeal (MCP) joint of right thumb, subsequent encounter S63.641D [facility] [address] [address] August, [facility] [address] [address] August, Right hand pain M79.641 [facility] [address] [address] August, Right hand pain M79.641 [place] [address] [address] Jun, Pain in right shoulder M25.511 ; Other chronic pain G89.29 and Tobacco use Z72.0 [place] [address] [address] May, [facility] [address] [address] May, Athlete's foot on left B35.3 [place] [address] [address] May, Right leg pain M79.604 and Goiter E04.9 [place] [address] [address] Jan, H/O thyroid nodule Z86.39 ; Pain in right shoulder M25.511 ; Other chronic pain G89.29 and Tobacco use Z72.0 [place] [address] [address] Jan, [place] [address] [address] 27 Dec, 2016 Biceps tendonitis on right M75.21 [facility] [address] [address] 14 Dec, 2016 Pain in right shoulder M25.511 and Other chronic pain G89.29 [place] [address] [address] Oct, Low back pain M54.5 [place] [address] [address] Sep, [place] [address] [address] Sep, Acute midline low back pain without sciatica M54.5 and Acne vulgaris L70.0 [place] [address] [address] August, Encounter for screening breast examination Z12.39 and Breast tenderness N64.4 [place] [address] [address] August, [place] [address] [address] August, Blepharitis of left lower eyelid, unspecified type H01.005 and Hordeolum externum left lower eyelid H00.015 [place] [address] [address] Jun, H/O thyroid nodule Z86.39 [facility] [address] [address] 28 May, 2016 Hordeolum externum of left lower eyelid H00.015 [place] [address] [place] [id number] [place] [address] 07 May, 2016 Goiter E04.9 and H/O thyroid nodule Z86.39 [facility] [address] [place] [id number] [place] [id number] Mar, [address] [id number] Feb, Midline cystocele N81.11 and Urinary, incontinence, stress female N39.3 [place] [address] [address] Jan, Examination, follow-up for injury Z09 [facility] [address] [address] Nov, Lumbago with sciatica, left side M54.42 and Lumbago with sciatica, right side M54.41 [place] [address] [address] Nov, [place] [address] [facility] [id number] [address] Nov, Atypical squamous cells of undetermined significance on cytologic smear of cervix (ASC-US) R87.610 [place] [address] [place] [id number] [address] Nov, Routine health maintenance Z00.00 ; Bipolar 2 disorder F31.81 ; Atypical squamous cells of undetermined significance on cytologic smear of cervix (ASC-US) R87.610 ; Goiter E04.9 ; Underweight R63.6 ; Pelvic congestion syndrome N94.89 ; H/O thyroid nodule Z86.39 and Irritable bowel syndrome with both constipation and diarrhea K58.0 [place] [address] [place] [id number] [address] Nov, Encounter for well woman exam Z01.419 [...] Screen for STD (sexually transmitted disease) Z11.3 [place] [address] [place] [id number] [address] Oct, Encounter for well woman exam Z01.419 [...] SOCIAL HISTORY Never Assessed REASON FOR VISIT Xray (walk-in) MHill RT(R) PLAN OF CARE VITAL SIGNS MEDICATIONS No Known Medications RESULTS Name Result Date Reference Range Xray : Hand, Right 3 views (IN HOUSE) 2017-08-16 PROCEDURES Procedure Date Ordered Result Body Site X-RAY EXAM OF HAND August 16, 2017 INSTRUCTIONS MEDICATIONS ADMINISTERED No Known Medications [...]
--- OUTSIDE RECORDS SUMMARY | 2018-02-14 10:30 | XMS REPORT ---
Author Author DAYAMI MCALLISTER Organization [facility] Address [address] [place] [address] Care Team Providers Care Filling Layer Up Name Role Phone DAYAMI MCALLISTER Unavailable PROBLEMS Type Condition ICD9-CM Code VKK72-IT Code Onset Dates Condition Status SNOMED Code Problem Atypical squamous cells of undetermined significance on cytologic smear of cervix (ASC-US) R87.610 Active 983726913 Problem Pelvic congestion syndrome N94.89 Active 66655719 Problem Bipolar 2 disorder F31.81 Active 94490814 Problem Pain of right thumb M79.644 Active 3282418505573775 Problem Other chronic pain G89.29 Active 39354776 Problem H/O thyroid nodule Z86.39 Active 637343241 Problem Irritable bowel syndrome with both constipation and diarrhea K58.0 Active 77472253 Problem Urinary, incontinence, stress female N39.3 Active 73621329 Problem Midline cystocele N81.11 Active 020803526 Problem 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 Active 919350502 Problem 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 703261882 Problem Underweight R63.6 Active 038392742 Problem Goiter E04.9 Active 1696665 Problem High risk sexual behavior Z72.51 Active 846383391 ALLERGIES No Information ENCOUNTERS Encounter Location Date Diagnosis [facility] [address] [place] [id number] [place] [address] August, Pain of right thumb M79.644 and Sprain of metacarpophalangeal (MCP) joint of right thumb, subsequent encounter S63.641D [facility] [address] [place] [id number] [place] [address] August, [facility] [address] [place] [id number] [address] August, Right hand pain M79.641 [facility] [address] [place] [id number] [place] [address] August, Right hand pain M79.641 [place] [address] [address] Jun, Pain in right shoulder M25.511 ; Other chronic pain G89.29 and Tobacco use Z72.0 [place] [address] [address] May, [facility] WALK IN [facility] [address] [address] May, Athlete's foot on left B35.3 [place] [address] [address] May, Right leg pain M79.604 and Goiter E04.9 [place] [address] [address] Jan, H/O thyroid nodule Z86.39 ; Pain in right shoulder M25.511 ; Other chronic pain G89.29 and Tobacco use Z72.0 [place] [address] [address] Jan, [place] [address] [place] [id number] [place] [address] 27 Dec, 2016 Biceps tendonitis on right M75.21 [facility] WALK IN [facility] [address] [place] [id number] [place] [address] 14 Dec, 2016 Pain in right shoulder M25.511 and Other chronic pain G89.29 [place] [address] [address] Oct, Low back pain M54.5 [place] [address] [address] Sep, [place] [address] [address] Sep, Acute midline low back pain without sciatica M54.5 and Acne vulgaris L70.[address] [address] August, Encounter for screening breast examination Z12.39 and Breast tenderness N64.4 [place] [address] [address] August, [address] [address] August, Blepharitis of left lower eyelid, unspecified type H01.005 and Hordeolum externum left lower eyelid H00.015 [place] [address] [address] Jun, H/O thyroid nodule Z86.39 [facility]ALK IN [address] [address] 28 May, 2016 Hordeolum externum of left lower eyelid H00.015 [place] [id number] [place] [address] 07 May, 2016 Goiter E04.9 and H/O thyroid nodule Z86.39 [place] [id number] [place] [id number] Mar, [address] [id number] Feb, Midline cystocele N81.11 and Urinary, incontinence, stress female N39.3 [place] [id number] [place] [address] Jan, Examination, follow-up for injury Z09 [facility] IN [address] [address] Nov, Lumbago with sciatica, left side M54.42 and Lumbago with sciatica, right side M54.[address] [address] Nov, [place] [address] [facility] [id number] [address] Nov, Atypical squamous cells of undetermined significance on cytologic smear of cervix (ASC-US) R87.610 [place] [address] [place] [id number] [address] Nov, Routine health maintenance Z00.00 ; Bipolar 2 disorder F31.81 ; Atypical squamous cells of undetermined significance on cytologic smear of cervix (ASC-US) R87.610 ; Goiter E04.9 ; Underweight R63.6 ; Pelvic congestion syndrome N94.89 ; H/O thyroid nodule Z86.39 and Irritable bowel syndrome with both constipation and diarrhea K58.0 [place] [address] [place] [id number] [address] Nov, Encounter for well woman exam Z01.419 [...] Screen for STD (sexually transmitted disease) Z11.3 [place] [address] [place] [id number] [address] Oct, Encounter for well woman exam Z01.419 [...] SOCIAL HISTORY Never Assessed REASON FOR VISIT smoking cessation PLAN OF CARE VITAL SIGNS MEDICATIONS No [...]
--- OUTSIDE RECORDS SUMMARY | 2018-02-14 10:30 | XMS REPORT ---
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 Active 970031652 Problem 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 248309308 Problem Underweight R63.6 Active 188716273 Problem Goiter E04.9 Active 7700331 Problem Other chronic pain G89.29 Active 84022102 Problem Midline cystocele N81.11 Active 772302781 Problem Irritable bowel syndrome with both constipation and diarrhea K58.0 Active 76880297 Problem Pelvic congestion syndrome N94.89 Active 73693211 Problem Urinary, incontinence, stress female N39.3 Active 30922314 Problem H/O thyroid nodule Z86.39 Active 294921890 ALLERGIES Substance Reaction Event Type Date Status Vicodin stomach upset Drug Allergy Dec, Active Macrobid itching Drug Allergy Dec, Active ENCOUNTERS Encounter Location Date Diagnosis [facility] [address] [place] [id number] [address] Jun, Pain in right shoulder M25.511 ; Other chronic pain G89.29 and Tobacco use Z72.0 [facility] [address] [place] [id number] [address] May, [facility] [address] [place] [id number] [address] May, Athlete's foot on left B35.3 [place] [address] [place] [id number] [place] [address] 05 May, 2017 Right leg pain M79.604 and Goiter E04.9 [place] [address] [place] [id number] [place] [address]- [address] 03 Jan, 2017 H/O thyroid nodule Z86.39 ; Pain in right shoulder M25.511 ; Other chronic pain G89.29 and Tobacco use Z72.0 [place] [address] [address] Jan, [place] [address] [address] 27 Dec, 2016 Biceps tendonitis on right M75.21 [facility] IN [facility] [address] [address] 14 Dec, 2016 Pain in right shoulder M25.511 and Other chronic pain G89.29 [place] [address] [place] [id number] [place] [address] Oct, Low back pain M54.5 [place] [address] [address] Sep, [place] [address] [place] [id number] [place] [address]- 4697 Sep, Acute midline low back pain without sciatica M54.5 and Acne vulgaris L70.0 [place] [address] [place] [id number] [place] [address]- [address] August, Encounter for screening breast examination Z12.39 and Breast tenderness N64.4 [place] [address] [address] August, [place] [address] [address] August, Blepharitis of left lower eyelid, unspecified type H01.005 and Hordeolum externum left lower eyelid H00.015 [place] [address] [place] [id number] [place] [address]- [address] 24 Jun, 2016 H/O thyroid nodule Z86.39 [facility] [address] [address] 28 May, 2016 Hordeolum externum of left lower eyelid H00.015 [place] [address] [address] 07 May, 2016 Goiter E04.9 and H/O thyroid nodule Z86.39 [facility] [address] [place] [id number] [place] [id number] Mar, [address] [id number] Feb, Midline cystocele N81.11 and Urinary, incontinence, stress female N39.[address] [address] Jan, Examination, follow-up for injury Z09 [facility] IN [address] [address] Nov, Lumbago with sciatica, left side M54.42 and Lumbago with sciatica, right side M54.[address] [address] Nov, [address] [address] Nov, Atypical squamous cells of undetermined significance on cytologic smear of cervix (ASC-US) R87.[address] [address] Nov, Routine health maintenance Z00.00 ; Bipolar 2 disorder F31.81 ; Atypical squamous cells of undetermined significance on cytologic smear of cervix (ASC-US) R87.610 ; Goiter E04.9 ; Underweight R63.6 ; Pelvic congestion syndrome N94.89 ; H/O thyroid nodule Z86.39 and Irritable bowel syndrome with both constipation and diarrhea K58.0 [facility] [address] [facility] [id number] [address] Nov, Encounter for well woman exam Z01.419 [...] Screen for STD (sexually transmitted disease) Z11.3 [place] [address] [facility] [id number] [address] Oct, Encounter for well woman exam Z01.419 [...] SOCIAL HISTORY Never Assessed REASON FOR VISIT Right shoulder pain- lifting at work, feels a grinding pain and burning JStrasserRN PLAN OF CARE Activity Details Follow Up prn Reason: VITAL SIGNS Height 64 in 2016-12-17 Weight 92 lbs 2016-12-17 Temperature 98.2 degrees Fahrenheit 2016-12-17 Heart Rate 66 bpm 2016-12-17 Respiratory Rate 18 2016-12-17 BMI 15.79 kg/m2 2016-12-17 Blood pressure systolic 98 mmHg 2016-12-17 Blood pressure diastolic 68 mmHg 2016-12-17 MEDICATIONS Medication Instructions Dosage Frequency Start Date End Date Duration Status PredniSONE 20 MG Orally Once a day 2 tablets 24h Dec, Dec, 5 days Active RESULTS No Results PROCEDURES Procedure Date Ordered Result Body Site X-RAY EXAM OF SHOULDER Dec 17, 2016 INSTRUCTIONS MEDICATIONS ADMINISTERED No Known Medications MEDICAL [...]
--- OUTSIDE RECORDS SUMMARY | 2018-02-14 10:30 | XMS REPORT ---
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 Active 844408273 Problem 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 936089438 Problem Underweight R63.6 Active 265731587 Problem Goiter E04.9 Active 3290481 Problem Other chronic pain G89.29 Active 86634650 Problem Midline cystocele N81.11 Active 515583944 Problem Irritable bowel syndrome with both constipation and diarrhea K58.0 Active 75821005 Problem Pelvic congestion syndrome N94.89 Active 43710567 Problem Urinary, incontinence, stress female N39.3 Active 33218324 Problem H/O thyroid nodule Z86.39 Active 487483980 ALLERGIES Substance Reaction Event Type Date Status Vicodin stomach upset Drug Allergy Oct, Active Macrobid itching Drug Allergy Oct, Active ENCOUNTERS Encounter Location Date Diagnosis [facility] [address] [place] [address] Jun, Pain in right shoulder M25.511 ; Other chronic pain G89.29 and Tobacco use Z72.0 [facility] [address], [place] [address] May, [facility] [address], [place] [address] May, Athlete's foot on left B35.3 [place] [address] [place] [id number] [place] [address]- [address] 05 May, 2017 Right leg pain M79.604 and Goiter E04.9 [place] [address] [place] [address] [place] [address]1- [address] 03 Jan, 2017 H/O thyroid nodule Z86.39 ; Pain in right shoulder M25.511 ; Other chronic pain G89.29 and Tobacco use Z72.0 [place] [address] [address] Jan, [place] [address] [address] 27 Dec, 2016 Biceps tendonitis on right M75.21 [facility] WALK IN [facility] [address] [address] 14 Dec, 2016 Pain in right shoulder M25.511 and Other chronic pain G89.29 [place] [address] [place] [id number] [place] [address]- [address] Oct, Low back pain M54.5 [place] [address] [address] Sep, [place] [address] [place] [id number] [place] [address]- [address] Sep, Acute midline low back pain without sciatica M54.5 and Acne vulgaris L70.0 [place] [address] [place] [id number] [place] [address]- [address] August, Encounter for screening breast examination Z12.39 and Breast tenderness N64.4 [place] [address] [address] August, [place] [address] [address] August, Blepharitis of left lower eyelid, unspecified type H01.005 and Hordeolum externum left lower eyelid H00.015 [place] [address] [place] [id number] [place] [address]78- [address] 24 Jun, 2016 H/O thyroid nodule Z86.39 [facility] IN [address] [address] 28 May, 2016 Hordeolum externum of left lower eyelid H00.015 [place] [address] [address] 07 May, 2016 Goiter E04.9 and H/O thyroid nodule Z86.39 [facility] [address] [id number] [place] [id number] Mar, [address] [id number] Feb, Midline cystocele N81.11 and Urinary, incontinence, stress female N39.[address] [address] Jan, Examination, follow-up for injury Z09 [facility] IN [address] [address] Nov, Lumbago with sciatica, left side M54.42 and Lumbago with sciatica, right side M54.[address] [address]19 Nov, [address] [address] Nov, Atypical squamous cells of undetermined significance on cytologic smear of cervix (ASC-US) R87.[address] [address] Nov, Routine health maintenance Z00.00 ; Bipolar 2 disorder F31.81 ; Atypical squamous cells of undetermined significance on cytologic smear of cervix (ASC-US) R87.610 ; Goiter E04.9 ; Underweight R63.6 ; Pelvic congestion syndrome N94.89 ; H/O thyroid nodule Z86.39 and Irritable bowel syndrome with both constipation and diarrhea K58.0 [place] [address] N [facility] [id number] [address] Nov, Encounter for well woman exam Z01.419 [...] Screen for STD (sexually transmitted disease) Z11.3 [place] [address] [address] [facility] [id number] Oct, Encounter for well woman exam Z01.419 [...] SOCIAL HISTORY Never Assessed REASON FOR VISIT Back Pain , leg pain for long time , she stated already tried prednisone, flexeril and doesn't work foer her -- raquel moore PLAN OF CARE Activity Details Follow Up prn Reason: VITAL SIGNS Height 5'4" in 2016-10-22 Weight 91.5 lbs 2016-10-22 Temperature 97.0 degrees Fahrenheit 2016-10-22 Heart Rate 68 bpm 2016-10-22 Respiratory Rate 18 2016-10-22 BMI 15.70 kg/m2 2016-10-22 Blood pressure systolic 98 mmHg 2016-10-22 Blood pressure diastolic 68 mmHg 2016-10-22 MEDICATIONS Medication Instructions Dosage Frequency Start Date End Date Duration Status Tizanidine HCl 2 MG Orally Three times a day 1 tablet as needed 8h Oct, Nov, 30 days Active Ibuprofen 800 MG Orally 2 times a day 1 tablet with food or milk 12h 19 SepDec, 90 days Active RESULTS No Results PROCEDURES No [...]
--- OUTSIDE RECORDS SUMMARY | 2018-02-14 10:31 | XMS REPORT ---
Author Author YARI REAL [facility] IN [facility] Address [address] [place] [address] Care Team Providers Care Gun Barrel Finisher Name Role Phone YARI REAL Unavailable PROBLEMS Type Condition ICD9-CM Code MEW72-JA Code Onset Dates Condition Status SNOMED Code Problem Atypical squamous cells of undetermined significance on cytologic smear of cervix (ASC-US) R87.610 Active 412460977 Problem Pelvic congestion syndrome N94.89 Active 69019126 Problem Bipolar 2 disorder F31.81 Active 57182435 Problem Pain of right thumb M79.644 Active [id number] Problem Other chronic pain G89.29 Active 57734328 Problem H/O thyroid nodule Z86.39 Active 740527229 Problem Irritable bowel syndrome with both constipation and diarrhea K58.0 Active 33228701 Problem Urinary, incontinence, stress female N39.3 Active 34049583 Problem Midline cystocele N81.11 Active 644395898 Problem 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 Active 665059090 Problem 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 710372483 Problem Underweight R63.6 Active 976030434 Problem Goiter E04.9 Active 8113407 Problem High risk sexual behavior Z72.51 Active 753487476 ALLERGIES Substance Reaction Event Type Date Status Vicodin stomach upset Drug Allergy May, Active Macrobid itching Drug Allergy May, Active ENCOUNTERS Encounter Location Date Diagnosis [facility] [address] [facility] [id number] [address] August, Pain of right thumb M79.644 and Sprain of metacarpophalangeal (MCP) joint of right thumb, subsequent encounter S63.641D [facility] [address] [id number] [address] August, [facility] [id number] [place] [address] 90999- 2088 14 Aug, 2017 Right hand pain M79.641 [facility] [id number] [place] [address] 32890 -5982 August, Right hand pain M79.641 [facility] [id number] [place] [address] 09874- 5454 Jun, Pain in right shoulder M25.511 ; Other chronic pain G89.29 and Tobacco use Z72.0 [facility] [id number] [place] [address] 14128- 8394 May, [facility] [address] [address]57[address] 09 May, 2017 Athlete's foot on left B35.3 [place] [address] [id number] [place] [address] 81250- 4719 May, Right leg pain M79.604 and Goiter E04.9 [facility] [id number] [place] [address] 23445- 7573 Jan, H/O thyroid nodule Z86.39 ; Pain in right shoulder M25.511 ; Other chronic pain G89.29 and Tobacco use Z72.0 [place] [address] [id number] [place] [address] 86680- 0736 Jan, [facility] [id number] [place] [address] 53173- 1264 27 Dec, 2016 Biceps tendonitis on right M75.21 [facility] WALK IN [facility] [id number] [place] [address] 30982 -0139 14 Dec, 2016 Pain in right shoulder M25.511 and Other chronic pain G89.29 [facility] [id number] [place] [address] 20634- 1963 Oct, Low back pain M54.5 [facility] [address] 68941- 5803 Sep, [place] [address] [id number] [place] [address] 26100- 7289 Sep, Acute midline low back pain without sciatica M54.5 and Acne vulgaris L70.0 [place] [address] [id number] [place] [address] 48373- 0643 August, Encounter for screening breast examination Z12.39 and Breast tenderness N64.4 [place] [address] 26200- 7713 August, [address] 94[address]- 5092 August, Blepharitis of left lower eyelid, unspecified type H01.005 and Hordeolum externum left lower eyelid H00.015 [place] [id number] [place] [address] 86020- 1485 Jun, H/O thyroid nodule Z86.39 [facility] [place] [address] [id number] [place] [address] 50917 -3156 May, Hordeolum externum of left lower eyelid H00.015 [place] [address] [id number] [place] [address] 99605- 3127 07 May, 2016 Goiter E04.9 and H/O thyroid nodule Z86.39 [facility] [id number] [place] [address] [id number] Mar, [facility] [id number] [place] [address] [id number] Feb, Midline cystocele N81.11 and Urinary, incontinence, stress female N39.[address] 09254- 9854 Jan, Examination, follow-up for injury Z09 [facility] [id number] [place] [address] 07548 -8133 Nov, Lumbago with sciatica, left side M54.42 and Lumbago with sciatica, right side M54.41 [place] [address] [address] Nov, [place] [address] [id number] [place] [address] 27150- 1245 Nov, Atypical squamous cells of undetermined significance on cytologic smear of cervix (ASC-US) R87.610 [place] [address] [place] [address] 17550- 0672 Nov, Routine health maintenance Z00.00 ; Bipolar 2 disorder F31.81 ; Atypical squamous cells of undetermined significance on cytologic smear of cervix (ASC-US) R87.610 ; Goiter E04.9 ; Underweight R63.6 ; Pelvic congestion syndrome N94.89 ; H/O thyroid nodule Z86.39 and Irritable bowel syndrome with both constipation and diarrhea K58.0 [address] [place] [address] 04869- 4831 Nov, Encounter for well woman exam Z01.419 [...] Screen for STD (sexually transmitted disease) Z11.3 [place] [address] [place] [address] 68762- 5931 Oct, Encounter for well woman exam Z01.419 [...] SOCIAL HISTORY Never Assessed REASON FOR VISIT rash on left foot that itches. reports it has been there for 2 months. laly, saw dr davis recently...but never mentioned this to her PLAN OF CARE Activity Details Follow Up prn Reason: VITAL SIGNS Height 64 in 2017-05-14 Weight 101.6 lbs 2017-05-14 Temperature 98.2 degrees Fahrenheit 2017-05-14 Heart Rate 84 bpm 2017-05-14 Respiratory Rate 20 2017-05-14 BMI 17.44 kg/m2 2017-05-14 Blood pressure systolic 100 mmHg 2017-05-14 Blood pressure diastolic 68 mmHg 2017-05-14 MEDICATIONS Medication Instructions Dosage Frequency Start Date End Date Duration Status Estradiol 2 MG Orally 2 times a day 1 tablet 12h Active Seroquel 25 MG Orally Once a day 1 tablet 24h 30 days Active RESULTS No Results PROCEDURES No [...]
--- OUTSIDE RECORDS SUMMARY | 2018-02-14 10:31 | XMS REPORT ---
Author Author DAYAMI MCALLISTER Organization [facility] Address [address] [place] [address] Care Team Providers Care Automobile Mechanic Assistant Name Role Phone DAYAMI MCALLISTER Unavailable PROBLEMS Type Condition ICD9-CM Code VWH68-HH Code Onset Dates Condition Status SNOMED Code Problem High risk sexual behavior Z72.51 Active 294872635 Problem Bipolar 2 disorder F31.81 Active 54618455 Problem Atypical squamous cells of undetermined significance on cytologic smear of cervix (ASC-US) R87.610 Active 088796510 Problem 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 Active 516501061 Problem 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 011786355 Problem Underweight R63.6 Active 442725981 Problem Goiter E04.9 Active 2947712 Problem Other chronic pain G89.29 Active 80256336 Problem Midline cystocele N81.11 Active 169937431 Problem Irritable bowel syndrome with both constipation and diarrhea K58.0 Active 83681395 Problem Pelvic congestion syndrome N94.89 Active 27103915 Problem Urinary, incontinence, stress female N39.3 Active 70505305 Problem H/O thyroid nodule Z86.39 Active 168350900 ALLERGIES No Information ENCOUNTERS Encounter Location Date Diagnosis [facility] [address] [place] [address] 45019- 8794 Jun, Pain in right shoulder M25.511 ; Other chronic pain G89.29 and Tobacco use Z72.0 [facility] [id number] [place] [address] 19103- 7933 May, [facility] [id number] [place] [address] 98579 -1742 May, Athlete's foot on left B35.3 [facility] [id number] [place] [address] 41922- 9484 May, Right leg pain M79.604 and Goiter E04.9 [place] [address] 41940- 5518 Jan, H/O thyroid nodule Z86.39 ; Pain in right shoulder M25.511 ; Other chronic pain G89.29 and Tobacco use Z72.0 [place] [address] 55477- 2416 Jan, [place] [address] 07036- 6200 27 Dec, 2016 Biceps tendonitis on right M75.21 [facility] WALK IN [place] [address] 89546 -5700 14 Dec, 2016 Pain in right shoulder M25.511 and Other chronic pain G89.29 [place] [address] 14663- 0315 Oct, Low back pain M54.5 [place] [address] 61843- 2458 Sep, [place] [address] 58267- 2511 Sep, Acute midline low back pain without sciatica M54.5 and Acne vulgaris L70.0 [place] [address] 12850- 5095 August, Encounter for screening breast examination Z12.39 and Breast tenderness N64.4 [place] [address] 50077- 8558 August, [place] [address] 36380- 2709 August, Blepharitis of left lower eyelid, unspecified type H01.005 and Hordeolum externum left lower eyelid H00.015 [place] [address] 50568- 6493 Jun, H/O thyroid nodule Z86.39 [facility] WALK IN [facility] [id number] [place] [address] 08164 -5711 28 May, 2016 Hordeolum externum of left lower eyelid H00.015 [place] [id number] [place] [address] 81783- 6424 07 May, 2016 Goiter E04.9 and H/O thyroid nodule Z86.39 [facility] [id number] [place] [address] [id number] Mar, [facility] [address] [id number] Feb, Midline cystocele N81.11 and Urinary, incontinence, stress female N39.3 [place] [address] 98809- 6015 Jan, Examination, follow-up for injury Z09 [facility] WALK IN [place] [address] 81898 -0621 Nov, Lumbago with sciatica, left side M54.42 and Lumbago with sciatica, right side M54.41 [place] [address] 64074- 4934 Nov, [place] [address] [id number] [place] [address] 15045- 1485 Nov, Atypical squamous cells of undetermined significance on cytologic smear of cervix (ASC-US) R87.610 [place] [address] 97264- 0977 Nov, Routine health maintenance Z00.00 ; Bipolar 2 disorder F31.81 ; Atypical squamous cells of undetermined significance on cytologic smear of cervix (ASC-US) R87.610 ; Goiter E04.9 ; Underweight R63.6 ; Pelvic congestion syndrome N94.89 ; H/O thyroid nodule Z86.39 and Irritable bowel syndrome with both constipation and diarrhea K58.0 [place] [address] 16892- 2546 Nov, Encounter for well woman exam Z01.419 [...] Screen for STD (sexually transmitted disease) Z11.3 [facility] [address] [facility] [id number] [place] [address] Oct, Encounter for well woman exam Z01.419 [...] SOCIAL HISTORY Never Assessed REASON FOR VISIT Phone call PLAN OF CARE VITAL SIGNS MEDICATIONS No [...]
--- OUTSIDE RECORDS SUMMARY | 2018-02-14 10:31 | XMS REPORT ---
Author Author MARILUZ HERNDON Organization [facility] Address [address] [place] [address] Care Team Providers Care Bread Oven Operator Name Role Phone HERNDONMARILUZ Rodriguez Unavailable PROBLEMS Type Condition ICD9-CM Code XUP89-VJ Code Onset Dates Condition Status SNOMED Code Problem High risk sexual behavior Z72.51 Active 474131103 Problem Bipolar 2 disorder F31.81 Active 08103153 Problem Atypical squamous cells of undetermined significance on cytologic smear of cervix (ASC-US) R87.610 Active 587081067 Problem 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 Active 288412896 Problem 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 275301255 Problem Underweight R63.6 Active 572093413 Problem Goiter E04.9 Active 9107750 Problem Other chronic pain G89.29 Active 41464664 Problem Midline cystocele N81.11 Active 506027484 Problem Irritable bowel syndrome with both constipation and diarrhea K58.0 Active 02261577 Problem Pelvic congestion syndrome N94.89 Active 43084492 Problem Urinary, incontinence, stress female N39.3 Active 59014331 Problem H/O thyroid nodule Z86.39 Active 667563530 ALLERGIES No Information ENCOUNTERS Encounter Location Date Diagnosis [facility] [address] [place] [address] 01872- 8412 Jun, [facility] [address] [place] [address] 01030- 5924 May, [facility] [address] [place] [address] 21802 -6310 May, Athlete's foot on left B35.3 [facility] [address] [place] [address] 19208- 6066 May, Right leg pain M79.604 and Goiter E04.9 [place] [address] [id number] [place] [address] 56282- 6733 Jan, H/O thyroid nodule Z86.39 [place] [address] 92149- 0281 Jan, [place] [address] 56617- 4876 27 Dec, 2016 Biceps tendonitis on right M75.[address] [facility] WALK IN [place] [address] 06239 -5663 14 Dec, 2016 Pain in right shoulder M25.511 and Other chronic pain G89.29 [place] [address] 67362- 6110 Oct, Low back pain M54.5 [place] [address] 50106- 4826 Sep, [place] [address] 43935- 4546 Sep, Acute midline low back pain without sciatica M54.5 and Acne vulgaris L70.0 [place] [address] [address] [id number] [place] [address] 18971- 5807 August, Encounter for screening breast examination Z12.39 and Breast tenderness N64.4 [place] [id number] [place] [address] 89320- 9333 August, [place] [address] 78678- 1319 August, Blepharitis of left lower eyelid, unspecified type H01.005 and Hordeolum externum left lower eyelid H00.015 [place] [address] [address] [id number] [place] [address] 87857- 6353 Jun, H/O thyroid nodule Z86.[address] [facility]ARE [facility] [address] [place] [id number] [place] [address] 76796 -4840 May, Hordeolum externum of left lower eyelid H00.015 [facility] [address] [place] [address] 92492- 6898 07 May, 2016 Goiter E04.9 and H/O thyroid nodule Z86.39 [facility] [id number] [place] [address] [id number] Mar, [facility] [id number] [place] [address] [id number] Feb, Midline cystocele N81.11 and Urinary, incontinence, stress female N39.3 [place] [address] [address] [id number] [place] [address] 30635- 8142 Jan, Examination, follow-up for injury Z09 [facility] WALK IN [facility] [id number] [place] [address] 31944 -1155 Nov, Lumbago with sciatica, left side M54.42 and Lumbago with sciatica, right side M54.41 [place] [address] [address] [id number] [place] [address] 33735- 7943 Nov, [place] [address] [id number] [place] [address] 75927- 9540 Nov, Atypical squamous cells of undetermined significance on cytologic smear of cervix (ASC-US) R87.610 [place] [address] [address] [id number] [place] [address] 18735- 9548 Nov, Routine health maintenance Z00.00 ; Bipolar 2 disorder F31.81 ; Atypical squamous cells of undetermined significance on cytologic smear of cervix (ASC-US) R87.610 ; Goiter E04.9 ; Underweight R63.6 ; Pelvic congestion syndrome N94.89 ; H/O thyroid nodule Z86.39 and Irritable bowel syndrome with both constipation and diarrhea K58.0 [place] [address] [place] [address] 64603- 6843 Nov, Encounter for well woman exam Z01.419 [...] Screen for STD (sexually transmitted disease) Z11.3 [facility] [address] [facility] [id number] [place] [address]- [address]181 Oct, Encounter for well woman exam Z01.419 [...] SOCIAL HISTORY Never Assessed REASON FOR VISIT Mammo Hx Updated -CLogiudiciRN PLAN OF CARE VITAL SIGNS MEDICATIONS Unknown [...]
--- OUTSIDE RECORDS SUMMARY | 2018-02-14 10:32 | XMS REPORT ---
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 Active 898526827 Problem 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 030128507 Problem Underweight R63.6 Active 410482110 Problem Goiter E04.9 Active 6678716 Problem Other chronic pain G89.29 Active 48997271 Problem Midline cystocele N81.11 Active 373339714 Problem Irritable bowel syndrome with both constipation and diarrhea K58.0 Active 21069342 Problem Pelvic congestion syndrome N94.89 Active 49230463 Problem Urinary, incontinence, stress female N39.3 Active 24841069 Problem H/O thyroid nodule Z86.39 Active 973451133 ALLERGIES No Information ENCOUNTERS Encounter Location Date Diagnosis [facility] [address] [place] [address] 00938- 0155 Jun, Pain in right shoulder M25.511 ; Other chronic pain G89.29 and Tobacco use Z72.0 [facility] [id number] [place] [address] 35422- 9491 May, [facility] [id number] [place] [address] 92600 -0483 May, Athlete's foot on left B35.3 [facility] [id number] [place] [address] 08289- 5963 May, Right leg pain M79.604 and Goiter E04.9 [place] [address] 37982- 7417 Jan, H/O thyroid nodule Z86.39 ; Pain in right shoulder M25.511 ; Other chronic pain G89.29 and Tobacco use Z72.0 [place] [address] 78919- 4468 Jan, [place] [address] 60862- 1463 27 Dec, 2016 Biceps tendonitis on right M75.21 [facility] WALK IN [place] [address] 75431 -9723 14 Dec, 2016 Pain in right shoulder M25.511 and Other chronic pain G89.29 [place] [address] 81698- 8540 Oct, Low back pain M54.5 [place] [address] 52705- 9921 Sep, [place] [address] 92507- 2814 Sep, Acute midline low back pain without sciatica M54.5 and Acne vulgaris L70.0 [place] [address] 64954- 3053 August, Encounter for screening breast examination Z12.39 and Breast tenderness N64.4 [place] [address] 21460- 1187 August, [place] [address] 99627- 2126 August, Blepharitis of left lower eyelid, unspecified type H01.005 and Hordeolum externum left lower eyelid H00.015 [place] [address] 72992- 4184 Jun, H/O thyroid nodule Z86.39 [facility] WALK IN [facility] [id number] [place] [address] 75072 -9831 28 May, 2016 Hordeolum externum of left lower eyelid H00.015 [place] [address] [id number] [place] [address] 20630- 0421 07 May, 2016 Goiter E04.9 and H/O thyroid nodule Z86.39 [facility] [id number] [place] [address] [id number] Mar, [facility] [address] [id number] Feb, Midline cystocele N81.11 and Urinary, incontinence, stress female N39.3 [place] [address] 96026- 4153 Jan, Examination, follow-up for injury Z09 [facility] WALK IN [place] [address] 53558 -7813 Nov, Lumbago with sciatica, left side M54.42 and Lumbago with sciatica, right side M54.41 [place] [address] 63074- 1110 Nov, [place] [address] [place] [id number] [place] [address] 97901- 8922 Nov, Atypical squamous cells of undetermined significance on cytologic smear of cervix (ASC-US) R87.610 [place] [address] 71883- 1567 Nov, Routine health maintenance Z00.00 ; Bipolar 2 disorder F31.81 ; Atypical squamous cells of undetermined significance on cytologic smear of cervix (ASC-US) R87.610 ; Goiter E04.9 ; Underweight R63.6 ; Pelvic congestion syndrome N94.89 ; H/O thyroid nodule Z86.39 and Irritable bowel syndrome with both constipation and diarrhea K58.0 [place] [address] 98663- 2546 Nov, Encounter for well woman exam [...] Screen for STD (sexually transmitted disease) Z11.3 [facility] [address] [facility] [id number] [place] [address]- 2546 Oct, Encounter for well woman exam Z01.419 [...] SOCIAL HISTORY Never Assessed REASON FOR VISIT Future Ultrasound PLAN OF CARE VITAL SIGNS MEDICATIONS No [...]
--- OUTSIDE RECORDS SUMMARY | 2018-02-14 10:32 | XMS REPORT ---
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 Active 986587458 Problem 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 113616753 Problem Underweight R63.6 Active 792377870 Problem Goiter E04.9 Active 2713158 Problem Other chronic pain G89.29 Active 96455561 Problem Midline cystocele N81.11 Active 623854284 Problem Irritable bowel syndrome with both constipation and diarrhea K58.0 Active 80949580 Problem Pelvic congestion syndrome N94.89 Active 54502354 Problem Urinary, incontinence, stress female N39.3 Active 09690516 Problem H/O thyroid nodule Z86.39 Active 997060109 ALLERGIES Substance Reaction Event Type Date Status Vicodin stomach upset Drug Allergy Dec, Active Macrobid itching Drug Allergy Dec, Active ENCOUNTERS Encounter Location Date Diagnosis [facility] [id number] [place] [address] Jun, Pain in right shoulder M25.511 ; Other chronic pain G89.29 and Tobacco use Z72.0 [facility] [address] [address] May, [facility] [id number], [place] [address] May, Athlete's foot on left B35.3 [facility] [id number] [place] [address] May, Right leg pain M79.604 and Goiter E04.9 [place] [id number] [place] [address] 03 Jan, 2017 H/O thyroid nodule Z86.39 ; Pain in right shoulder M25.511 ; Other chronic pain G89.29 and Tobacco use Z72.0 [place] [address] [address] Jan, [place] [address] [address] 27 Dec, 2016 Biceps tendonitis on right M75.21 [facility] [address] [address] 14 Dec, 2016 Pain in right shoulder M25.511 and Other chronic pain G89.29 [place] [id number] [place] [address] Oct, Low back pain M54.5 [place] [address] [address] Sep, [place] [id number] [place] [address] Sep, Acute midline low back pain without sciatica M54.5 and Acne vulgaris L70.0 [place] [id number] [place] [address] August, Encounter for screening breast examination Z12.39 and Breast tenderness N64.4 [place] [address] [address] August, [place] [address] [address] August, Blepharitis of left lower eyelid, unspecified type H01.005 and Hordeolum externum left lower eyelid H00.015 [place] [id number] [place] [address] 24 Jun, 2016 H/O thyroid nodule Z86.39 [facility] [place] [address] [address] 28 May, 2016 Hordeolum externum of left lower eyelid H00.015 [place] [address] [address] 07 May, 2016 Goiter E04.9 and H/O thyroid nodule Z86.39 [facility] [id number] [place] [id number] Mar, [address] [id number] Feb, Midline cystocele N81.11 and Urinary, incontinence, stress female N39.[address] [address] Jan, Examination, follow-up for injury Z09 [facility] [address] [address] Nov, Lumbago with sciatica, left side M54.42 and Lumbago with sciatica, right side M54.[address] [address] Nov, [address] [address] Nov, Atypical squamous cells of undetermined significance on cytologic smear of cervix (ASC-US) R87.[address] [address] Nov, Routine health maintenance Z00.00 ; Bipolar 2 disorder F31.81 ; Atypical squamous cells of undetermined significance on cytologic smear of cervix (ASC-US) R87.610 ; Goiter E04.9 ; Underweight R63.6 ; Pelvic congestion syndrome N94.89 ; H/O thyroid nodule Z86.39 and Irritable bowel syndrome with both constipation and diarrhea K58.0 [facility] [address] [facility] [id number] [place] [address] Nov, Encounter for well woman exam Z01.419 [...] Screen for STD (sexually transmitted disease) Z11.3 [place] [address] [facility] [id number] [address] Oct, Encounter for well woman exam Z01.419 [...] SOCIAL HISTORY Never Assessed REASON FOR VISIT Transition of Care -- raquel pollock, shoulder pain , patient states see was seen at [facility] for her shoulder pain PLAN OF CARE Activity Details Follow Up 6-8 Weeks with Gault f/u injection Reason: VITAL SIGNS Height 64 in 2016-12-30 Weight 91.6 lbs 2016-12-30 Temperature 97.0 degrees Fahrenheit 2016-12-30 Heart Rate 70 bpm 2016-12-30 Respiratory Rate 18 2016-12-30 BMI 15.72 kg/m2 2016-12-30 Blood pressure systolic 90 mmHg 2016-12-30 Blood pressure diastolic 68 mmHg 2016-12-30 MEDICATIONS No Known Medications RESULTS No Results PROCEDURES Procedure Date Ordered Result Body Site INJECT TENDON ORIGIN/INSERT Dec 30, 2016 KENALOG 40 MG/ML (PER 10 MG) Dec 30, 2016 INSTRUCTIONS MEDICATIONS ADMINISTERED No Known Medications [...]
[2018-02-14] MEDS ORDERED: LACTATED RINGERS 1,000 ML IV ONE (10:48)
--- NOTE | 2018-02-14 10:56 | ED Headache ---
General Chief Complaint: Dizziness/Syncope Stated Complaint: DIZZINESS, HEADACHE Source: patient, other Exam Limitations: no limitations History of Present Illness Date Seen by Provider: Feb 14, 2018 Time Seen by Provider: 10:45 Initial Comments Patient presents to ER by private conveyance with chief complaint of not being able to get to sleep tonight around 3:00 she was tossing and turning and then started having some pressure and pain in her head. She also had some nausea. She says she has a history of some headaches that are not quite the same as this. She also had a lot of migraines to her and even had come the ER once for a shot. She says that she swells to be on Seroquel but she stopped that months ago because she didn't like the way it made her drowsy. Recently her doctor prescribed her Effexor for her depression and she did not want to take it because she is afraid that it would be like all other antidepressants and make her groggy. But her stress levels of been high lately so she did take a dose yesterday and it did not make her drowsy but rather actually helped her mood. Normally she would take ibuprofen for her headaches but because of the nausea today she was not able to tolerate taking anything so she didn't even try. She's had no fevers chills abdominal pain or chest pain. No shortness of breath, earache or runny nose or sore throat. She describes the pain in her head as a pain and pressure 9 out of 10 on the left side starting in the frontal and going back to the back. She says is constant and not throbbing. She has no vision changes but she does have photophobia and phonophobia. No dysuria. She had a history of hysterectomy. She also has a history of a thyroid nodule. Allergies and Home Medications Allergies Coded Allergies: acetaminophen (Verified Allergy, Unknown, 06/07/16) hydrocodone (Verified Allergy, Unknown, 06/07/16) nitrofurantoin (Verified Allergy, Unknown, 06/07/16) Home Medications Ibuprofen 800 Mg Tablet, 800 MG PO Q6H PRN for PAIN Prescribed by: EDUARDO CASTRO on 04/07/17 1157 Patient Home Medication List Home Medication List Reviewed: Yes Review of Systems Review of Systems Constitutional: No chills, No diaphoresis Eyes: Denies Blindness, Denies Blurred Vision, Denies Drainage, Denies Decreased Acuity Ears, Nose, Mouth, Throat: denies ear pain, denies ear discharge Respiratory: No cough, No short of breath Cardiovascular: No chest pain, No palpitations Gastrointestinal: No abdominal pain, No constipation, No diarrhea; nausea; No vomiting Genitourinary: No discharge, No dysuria Past Ztwahgy-Msvuqg-Wrckas Hx Patient Social History Alcohol Use: Denies Use Recreational Drug Use: No Smoking Status: Current Everyday Smoker Type Used: Cigarettes 2nd Hand Smoke Exposure: Yes Recent Hopitalizations: No Immunizations Up To Date Tetanus Booster (TDap): Less than 5yrs Seasonal Allergies Seasonal Allergies: No Past Medical History Surgeries: Yes (c/s x4, ) Bladder Surgery, Section, Hysterectomy, Tubal Ligation Respiratory: No Cardiac: Yes Heart Murmur Neurological: No Reproductive Disorders: Yes 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 Gastrointestinal: Yes (upper right quad pain for 6 years unable to figure out from what) Irritable Bowel Musculoskeletal: No Endocrine: No (nodule on right side of thyroid no change in size in past year) Cancer: No Psychosocial: No Integumentary: No Blood Disorders: No (hx of anemia) Family Medical History Arthritis 19 FATHER Asthma G8 BROTHER Drug abuse 19 FATHER Hypertension 19 MOTHER Respiratory disorder 19 MOTHER No Pertinent Family Hx Physical Exam Vital Signs Vital Signs - First Documented 02/14/18 10:35 Temp 98.0 Pulse 72 Resp 18 B/P (MAP) 126/73 (90) Pulse Ox 99 O2 Delivery Room Air Capillary Refill : Height, Weight, BMI Height: 5'4.00" Weight: 99lbs. 0.0oz. 44.477814du; 17.0 BMI Method:Stated General Appearance: WD/WN, mild distress HEENT: PERRL/EOMI, normal ENT inspection, TMs normal, pharynx normal Neck: non-tender, full range of motion, supple, normal inspection Cardiovascular: normal peripheral pulses, regular rate, rhythm, no edema Respiratory: chest non-tender, lungs clear, normal breath sounds, no respiratory distress, no accessory muscle use Gastrointestinal: normal bowel sounds, non tender, soft Extremities: normal range of motion, normal inspection, normal capillary refill Psychiatric: alert, oriented x 3 Crainal Nerves: normal hearing, normal speech, PERRL Skin: normal color, warm/dry Progress/Results/Core Measures Results/Orders Lab Results Laboratory Tests Test 02/14/18 10:56 Range/Units White Blood Count 6.5 4.3-11.0 10^3/uL Red Blood Count 4.61 4.35-5.85 10^6/uL Hemoglobin 14.5 11.5-16.0 G/DL Hematocrit 41 35-52 % Mean Corpuscular Volume 89 80-99 FL Mean Corpuscular Hemoglobin 32 25-34 PG Mean Corpuscular Hemoglobin Concent 35 32-36 G/DL Red Cell Distribution Width 11.9 10.0-14.5 % Platelet Count 211 130-400 10^3/uL Mean Platelet Volume 11.5 H 7.4-10.4 FL Neutrophils (%) (Auto) 63 42-75 % Lymphocytes (%) (Auto) 29 12-44 % Monocytes (%) (Auto) 6 0-12 % Eosinophils (%) (Auto) 1 0-10 % Basophils (%) (Auto) 0 0-10 % Neutrophils # (Auto) 4.1 1.8-7.8 X 10^3 Lymphocytes # (Auto) 1.9 1.0-4.0 X 10^3 Monocytes # (Auto) 0.4 0.0-1.0 X 10^3 Eosinophils # (Auto) 0.1 0.0-0.3 10^3/uL Basophils # (Auto) 0.0 0.0-0.1 10^3/uL Erythrocyte Sedimentation Rate 4 0-20 MM/HR Sodium Level 138 135-145 MMOL/L Potassium Level 3.5 L 3.6-5.0 MMOL/L Chloride Level 104 98-107 MMOL/L Carbon Dioxide Level 22 21-32 MMOL/L Anion Gap 12 5-14 MMOL/L Blood Urea Nitrogen 13 7-18 MG/DL Creatinine 0.78 0.60-1.30 MG/DL Estimat Glomerular Filtration Rate > 60 BUN/Creatinine Ratio 17 Glucose Level 91 70-105 MG/DL Calcium Level 10.0 8.5-10.1 MG/DL Corrected Calcium 8.5-10.1 MG/DL Total Bilirubin 1.0 0.1-1.0 MG/DL Aspartate Amino Transf (AST/SGOT) 20 5-34 U/L Alanine Aminotransferase (ALT/SGPT) 12 0-55 U/L Alkaline Phosphatase 39 L 40-136 U/L C-Reactive Protein High Sensitivity 0.01 0.00-0.50 MG/DL Total Protein 7.3 6.4-8.2 GM/DL Albumin 4.8 H 3.2-4.5 GM/DL My Orders Orders - KALEN HURST Rosa Cbc With Automated Diff (02/14/18 10:48) Comprehensive Metabolic Panel (02/14/18 10:48) Hs C Reactive Protein (02/14/18 10:48) Erythrocyte Sedimentation Rate (02/14/18 10:48) Saline Lock/Iv-Start (02/14/18 10:48) Lactated Ringers (Lr 1000 Ml Iv Solution (02/14/18 10:48) Ketorolac Injection (Toradol Injection) (02/14/18 11:00) Ondansetron Injection (Zofran Injectio (02/14/18 11:00) Prochlorperazine Injection (Compazine In (02/14/18 11:00) Diphenhydramine Tablet (Benadryl Tablet) (02/14/18 11:00) Medications Given in ED Current Medications Medications Dose Ordered Sig/Giorgi Route Start Time Stop Time Status Last Admin Dose Admin Diphenhydramine HCl 25 mg ONCE ONCE PO 02/14/18 11:00 02/14/18 11:01 DC 02/14/18 11:18 25 MG Ketorolac Tromethamine 30 mg ONCE ONCE IVP 02/14/18 11:00 02/14/18 11:01 DC 02/14/18 11:16 30 MG Lactated Ringer's 1,000 ml @ 0 mls/hr Q0M ONCE IV 02/14/18 10:48 02/14/18 10:50 DC 02/14/18 11:14 1,000 MLS/HR Ondansetron HCl 4 mg ONCE ONCE IVP 02/14/18 11:00 02/14/18 11:01 DC 02/14/18 11:14 4 MG Prochlorperazine Edisylate 10 mg ONCE ONCE IV 02/14/18 11:00 02/14/18 11:01 DC 02/14/18 11:18 10 MG Vital Signs/I&O 02/14/18 10:35 Temp 98.0 Pulse 72 Resp 18 B/P (MAP) 126/73 (90) Pulse Ox 99 O2 Delivery Room Air Progress Progress Note #1: Time: 10:56 Progress Note For her nausea were going to try some Compazine, Benadryl and Zofran. We'll get an IV and obtain some labs. Toradol for her pain start. We will give her a liter of LR will she is waiting for her labs to come back. Progress Note #2: Time: 11:53 Progress Note The patient's symptoms are improving. Her nausea is gone. We are going to send her home with some Zofran and instructions to hold off on the Effexor for a week or 2 and then she's not having any symptoms she can try again. If her headache resumes or she has insomnia and she should probably not use the Effexor. Departure Impression Primary Impression: Headache Qualified Codes: R51 - Headache Disposition: 01 HOME, SELF-CARE Condition: Improved Departure-Patient Inst. Decision time for Depature: 11:55 Referrals: DAYAMI MCALLISTER MD (PCP/Family) Primary Care Physician Patient Instructions: Headache, Adult (DC) Add. Discharge Instructions: Take some Tylenol 1000 mg when he got home. Every 8 hours can have ibuprofen 800 mg. Get some sleep and drink some fluids. Do not take your Effexor for at least a week. If you're not having any symptoms you may retry the Effexor since it seems like otherwise it was helpful for you. Plan to follow up with your primary care provider and discuss your symptoms as well as the medication. If you're having nausea you may take one tablet of Zofran every 6 hours as needed. All discharge instructions reviewed with patient and/or family. Voiced understanding. Scripts Ondansetron (Ondansetron Odt) 4 Mg Tab.rapdis 4 MG PO Q6H PRN for NAUSEA/VOMITING, #8 TAB 0 Refills Prov: KALEN HURST 02/14/18 Work/School Note: Family Work Note Patient Received Medical Care In the Emergency Department On: Feb 14, 2018 Patient Will Be Able to Return to Work/School On: Feb 15, 2018 Patient Restrictions: none Copy Copies To 1: APRYL CASANOVA TITUS J Feb 14, 2018 10:56
[2018-02-14] MEDS ORDERED: ONDANSETRON 4 MG/2 ML (SDV) Z0FRAN IVP ONE (11:00)
[2018-02-14] MEDS ORDERED: diphenhydrAMINE 25 MG TAB (BENADRYL) PO ONE (11:00)
[2018-02-14] MEDS ORDERED: PROCHLORPERAZINE 10 MG/2ML INJ (COMPAZINE) IV ONE (11:00)
[2018-02-14] MEDS ORDERED: KETOROLAC 30 MG/ML VIAL IVP ONE (11:00)
[2018-02-14 11:03] LABS: BASOPHILS % (AUTO) 0 % (0-10); EOSINOPHILS # (AUTO) 0.1 10^3/uL (0.0-0.3); EOSINOPHILS % (AUTO) 1 % (0-10); HEMATOCRIT 41 % (35-52); HEMOGLOBIN 14.5 G/DL (11.5-16.0); LYMPHOCYTES # (AUTO) 1.9 X 10^3 (1.0-4.0); LYMPHOCYTES % (AUTO) 29 % (12-44); MEAN CORPUSCULAR HEMOGLOBIN 32 PG (25-34); MEAN CORPUSCULAR HGB CONC 35 G/DL (32-36); MEAN CORPUSCULAR VOLUME 89 FL (80-99); MEAN PLATELET VOLUME 11.5 FL (7.4-10.4); MONOCYTES # (AUTO) 0.4 X 10^3 (0.0-1.0); MONOCYTES % (AUTO) 6 % (0-12); NEUTROPHILS # (AUTO) 4.1 X 10^3 (1.8-7.8); NEUTROPHILS % (AUTO) 63 % (42-75); PLATELET COUNT 211 10^3/uL (130-400); RED BLOOD COUNT 4.61 10^6/uL (4.35-5.85); RED CELL DISTRIBUTION WIDTH 11.9 % (10.0-14.5); WHITE BLOOD COUNT 6.5 10^3/uL (4.3-11.0)
[2018-02-14 11:19] LABS: ALANINE AMINOTRANSFERASE 12 U/L (0-55); ALBUMIN 4.8 GM/DL (3.2-4.5); ALKALINE PHOSPHATASE 39 U/L (40-136); BUN/CREATININE RATIO 17; CARBON DIOXIDE 22 MMOL/L (21-32); CHLORIDE 104 MMOL/L (98-107); CREATININE SERUM 0.78 MG/DL (0.60-1.30); GFR ESTIMATED > 60; GLUCOSE 91 MG/DL (70-105); POTASSIUM 3.5 MMOL/L (3.6-5.0); SODIUM 138 MMOL/L (135-145); TOTAL PROTEIN 7.3 GM/DL (6.4-8.2)
[2018-02-14 11:26] LABS: ERYTHROCYTE SEDIMENTATION RATE 4 MM/HR (0-20)
[2018-02-14] MEDS ORDERED: EFFEXOR (11:27)
[2018-02-14] MEDS ORDERED: ONDA4TAB11 PO (11:57)
[2018-02-14 12:12] VITALS: BP 116/60
== END 2018-02-14 12:11 | disposition home or self-care (01) ==
LOC: EDUNIT# 10:22 → ER 10:24
DX: R51 Headache (principal); F32.9 Major depressive disorder, single episode, unspecified; F17.210 Nicotine dependence, cigarettes, uncomplicated; Z98.890 Other specified postprocedural states; Z98.51 Tubal ligation status; Z87.448 Personal history of other diseases of urinary system; Z87.19 Personal history of other diseases of the digestive system; Z90.710 Acquired absence of both cervix and uterus; Z88.5 Allergy status to narcotic agent; Z88.8 Allergy status to other drugs, medicaments and biological substances
CPT/HCPCS: 36415; 80053; 85025; 85652; 86141

== ENCOUNTER 2020-11-03 08:39 | Emergency (ER) | payer BC ==
[~2020-11-03] VITALS: Ht 162 cm; Wt 40.0 kg
[~2020-11-03 08:39] MED LIST changes: +EFFEXOR; +ONDA4TAB11 PO; -OXYC-465 PO; +OXYC-556 PO; -TRAM50TA2 PO; +TRM50T PO
[2020-11-03] MEDS ORDERED: ONDANSETRON 4 MG (ZOFRAN) ORAL DISSOLVE TAB PO STA (09:07)
[2020-11-03] MEDS ORDERED: ONDANSETRON 4 MG/2 ML (SDV) Z0FRAN ONE (09:11)
[2020-11-03 09:12] LABS: BILIRUBIN,URINE NEGATIVE (NEGATIVE); CLARITY,URINE CLEAR; COLOR,URINE YELLOW; GLUCOSE, URINE (UA) NEGATIVE (NEGATIVE); KETONES,URINE 3+ (NEGATIVE); LEUKOCYTE ESTERASE ,URINE NEGATIVE (NEGATIVE); NITRITE,URINE NEGATIVE (NEGATIVE); PROTEIN,URINE 1+ (NEGATIVE)
--- NOTE | 2020-11-03 09:13 | ED GU-Female ---
General Chief Complaint: - Urinary Stated Complaint: BLADDER PAIN/UTI SYMPTOMS Source: patient Exam Limitations: no limitations History of Present Illness Date Seen by Provider: Nov 03, 2020 Time Seen by Provider: 09:08 Initial Comments Patient is a 40-year-old female who presents to the emergency department with a chief complaint of urinary urgency frequency and dysuria for the last couple of days. Patient states that she was seen at the walk-in clinic and started on some Cipro yesterday. Patient states that her presenting complaint was hematuria. Patient denies any abnormal vaginal discharge, she is status post hysterectomy. Patient denies any fever. She states that throughout the night last night her pain continued to worsen, she is profoundly nauseated and has the most pain in her right flank radiating into her back. No GI issues other than her nausea. All other review of systems reviewed and negative except as stated above. Timing/Duration: yesterday, getting worse Severity/Quality: severe, cramping Location: RLQ, suprapubic, right flank Radiation: suprapubic, right flank Activities at Onset: none Modifying Factors: Worsens With Movement Associated Symptoms: abdominal pain, lower back pain, nausea/vomiting Allergies and Home Medications Allergies Coded Allergies: acetaminophen (Verified Allergy, Unknown, 06/07/16) hydrocodone (Verified Allergy, Unknown, 06/07/16) nitrofurantoin (Verified Allergy, Unknown, 06/07/16) Home Medications Ibuprofen 800 Mg Tablet, 800 MG PO Q6H PRN for PAIN Prescribed by: EDUARDO CASTRO on 04/07/17 1157 Ondansetron 4 Mg Tab.rapdis, 4 MG PO Q6H PRN for NAUSEA/VOMITING Prescribed by: KALEN HURST on 02/14/18 1157 Promethazine HCl 25 Mg Tablet, 25 MG PO Q6H PRN for NAUSEA/VOMITING Prescribed by: MIR MARSHALL on 11/03/20 1232 Tamsulosin HCl 0.4 Mg Cap, 0.4 MG PO DAILY Prescribed by: MIR MARSHALL on 11/03/20 1225 Tramadol HCl 50 Mg Tablet, 50 MG PO Q6H PRN for PAIN Prescribed by: MIR MARSHALL on 11/03/20 1226 Patient Home Medication List Home Medication List Reviewed: Yes Review of Systems Review of Systems Constitutional: see HPI EENTM: no symptoms reported Respiratory: no symptoms reported Cardiovascular: no symptoms reported Gastrointestinal: abdominal pain, nausea Genitourinary: burning, frequency, flank pain, hematuria, pain, urgency : No Musculoskeletal: no symptoms reported Skin: no symptoms reported All Other Systemes Reviewed Negative Unless Noted: Yes Past Qidygdt-Bkizwn-Vhgwzt Hx Patient Social History Tobacco Use?: Yes Tobacco type used: Cigarettes Smoking Status: Current Everyday Smoker Use of E-Cig and/or Vaping dev: No Substance use?: No Alcohol Use?: No Pt feels they are or have been: No Immunizations Up To Date Tetanus Booster (TDap): Less than 5yrs Seasonal Allergies Seasonal Allergies: No Past Medical History Surgery/Hospitalization HX: HYSTERECTOMY, BLADDER SLING Surgeries: Yes (c/s x4, ) Bladder Surgery, Section, Hysterectomy, Tubal Ligation Respiratory: No Cardiac: Yes (murmur as a child) Heart Murmur Neurological: No Reproductive Disorders: Yes 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 Gastrointestinal: Yes (upper right quad pain for 6 years unable to figure out from what) Irritable Bowel Musculoskeletal: No Endocrine: No (nodule on right side of thyroid no change in size in past year) Cancer: No Psychosocial: No Integumentary: No Blood Disorders: No (hx of anemia) Family Medical History Arthritis 19 FATHER Asthma G8 BROTHER Drug abuse 19 FATHER Hypertension 19 MOTHER Respiratory disorder 19 MOTHER No Pertinent Family Hx Physical Exam Vital Signs Vital Signs - First Documented 11/03/20 08:39 Temp 36.2 Pulse 55 Resp 18 B/P (MAP) 118/60 (79) Pulse Ox 100 O2 Delivery Room Air Capillary Refill : Height, Weight, BMI Height: 5'4.00" Weight: 93lbs. 0.0oz. 42.883334tq; 17.0 BMI Method:Stated General Appearance: moderate distress HEENT: PERRL/EOMI Neck: normal inspection Cardiovascular: regular rate, rhythm Respiratory: lungs clear, normal breath sounds, no respiratory distress, no accessory muscle use Gastrointestinal: abnormal bowel sounds (Hypoactive), guarding, tenderness (Significant tenderness throughout abdominal exam patient actually grabs at my hand to prevent me from palpating her abdomen. Significant right CVA tenderness) Back: CVA tenderness (R) Extremities: normal range of motion, non-tender, normal inspection, no pedal edema, normal capillary refill Neurologic/Psychiatric: alert, normal mood/affect, oriented x 3 Skin: normal color, warm/dry, pallor (Pallor of the lips, no conjunctival pallor) Progress/Results/Core Measures Suspected Sepsis SIRS Temperature: Pulse: Respiratory Rate: Laboratory Tests 11/03/20 08:45: White Blood Count 15.0H Blood Pressure / Mean: Laboratory Tests 11/03/20 08:45: Creatinine 1.09, Platelet Count 265 Results/Orders Lab Results My Orders Orders - MIR MARSHALL MD Ekg Tracing (11/03/20 10:39) Medications Given in ED Vital Signs/I&O Capillary Refill : Progress Note : Time: 12:23 Progress Note Patient is feeling much better. It looks like she has a 2 to 3 mm right UVJ stone on CAT scan. No evidence of urinary tract infection. Patient was hydrated with a couple of liters of normal saline. She was given pain medications. Will be sent home with Flomax and pain medications, tramadol as she is allergic to hydrocodone. Patient will be encouraged to follow-up with her primary care physician. She is given return precautions. She verbalized understanding, all questions are sought and answered. Patient is stable for discharge. Diagnostic Imaging Diagonstic Imaging: CT Comments [facility], [place] NAME: MAGDALENA RICHARDSON [facility] REC#: [id number] PT STATUS: REG ER : 1980 PHYSICIAN: MIRTHA HOBSON APRN ADMIT DATE: 11/03/20/ER Draft Date of Exam:11/03/20 CT ABDOMEN/PELVIS WO PROCEDURE: CT abdomen and pelvis without contrast. TECHNIQUE: Multiple contiguous axial images were obtained through the abdomen and pelvis without the use of intravenous contrast. Auto Exposure Controls were utilized during the CT exam to meet ALARA standards for radiation dose reduction. INDICATION: Abdominal pain and hematuria. The lung bases are clear. Liver is unremarkable. There is no biliary ductal dilatation. Pancreas and spleen are unremarkable. No adrenal mass is detected. No renal calculi are identified. There is a approximately 2 to 3 mm calcific density at the right bladder base which could potentially represent a UVJ calculus. No significant hydronephrosis is seen although the right renal pelvis is somewhat prominent. The bowel loops appear to be normal caliber. There is no free fluid or fluid collection. IMPRESSION: A 2 to 3 mm calcific density in the region of the UVJ on the right without significant hydroureteronephrosis. The study is otherwise unremarkable. Dictated on workstation # [id number] Dict: 11/03/20 1139 Trans: 11/03/20 1146 CV [id number] Interpreted by: SUKH HOFFMAN MD Departure Impression Primary Impression: Kidney stone on right side Disposition: HOME, SELF-CARE Condition: Improved Departure-Patient Inst. Decision time for Depature: 12:24 Referrals: DAYAMI MCALLISTER MD (PCP/Family) Primary Care Physician Patient Instructions: Kidney Stones (DC) Add. Discharge Instructions: Drink lots of fluids over the next several days to stay well-hydrated and flush out your kidney stone. I have given you a prescription for tramadol, pain medication you can take 1 every 6 hours as needed for pain. You can also take either Tylenol or ibuprofen as needed. I have also given your prescription for Flomax. Take this daily for the next week. This will help your urinary flow and hopefully to get rid of the kidney stone. Strain your urine. Please call Dr. Mcallister's office for a follow-up appointment/reevaluation Scripts Promethazine HCl (Promethazine Tablet) 25 Mg Tablet 25 MG PO Q6H PRN for NAUSEA/VOMITING, #10 TAB Prov: MIR MARSHALL MD 11/03/20 Tramadol HCl (Tramadol HCl) 50 Mg Tablet 50 MG PO Q6H PRN for PAIN for 3 Days, #12 TAB 0 Refills Prov: MIR MARSHALL MD 11/03/20 Tamsulosin HCl (Flomax) 0.4 Mg Cap 0.4 MG PO DAILY for 14 Days, #14 CAP Prov: MIR MARSHALL MD 11/03/20 MIR MARSHALL MD Nov 03, 2020 09:13
[2020-11-03] MEDS ORDERED: ONDANSETRON 4 MG/2 ML (SDV) Z0FRAN IVP ONE (09:15)
[2020-11-03 09:29] LABS: POTASSIUM 3.1 MMOL/L (3.6-5.0)
[2020-11-03 09:30] LABS: CALCIUM 9.8 MG/DL (8.5-10.1)
[2020-11-03] MEDS ORDERED: NS IV 1000 ML 1,000 ML IV SCH ×2 (09:30→10:45)
[2020-11-03] MEDS ORDERED: KETOROLAC 30 MG/ML VIAL IVP ONE (09:30)
[2020-11-03 09:34] LABS: CREATININE SERUM 1.09 MG/DL (0.60-1.30)
[2020-11-03 09:41] LABS: BASOPHILS # (AUTO) 0.1 10^3/uL (0.0-0.1); BASOPHILS % (AUTO) 0 % (0-10); EOSINOPHILS # (AUTO) 0.1 10^3/uL (0.0-0.3); EOSINOPHILS % (AUTO) 1 % (0-10); HEMATOCRIT 40 % (35-52); HEMOGLOBIN 13.6 g/dL (11.5-16.0); LYMPHOCYTES % (AUTO) 13 % (12-44); MEAN CORPUSCULAR HEMOGLOBIN 31 pg (25-34); MEAN CORPUSCULAR HGB CONC 34 g/dL (32-36); MEAN CORPUSCULAR VOLUME 92 fL (80-99); MEAN PLATELET VOLUME 12.4 fL (9.0-12.2); MONOCYTES # (AUTO) 0.6 10^3/uL (0.0-1.0); MONOCYTES % (AUTO) 4 % (0-12); NEUTROPHILS # (AUTO) 12.2 10^3/uL (1.8-7.8); NEUTROPHILS % (AUTO) 82 % (42-75); PLATELET COUNT 265 10^3/uL (130-400)
[2020-11-03 10:30] LABS: BAND NEUTROPHILS 2 %; LYMPHOCYTES % (MANUAL) 15 %; MONOCYTES % (MANUAL) 8 %; NEUTROPHILS % (MANUAL) 75 %; RBC MORPH NORMAL; TOXIC GRANULATION/VACUOLAZATIO 1+
[2020-11-03 10:31] LABS: HYPERSEGMENTED NEUT SLIGHT
[2020-11-03 10:45] LABS: BACTERIA,URINE TRACE /HPF; WBC,URINE RARE /HPF
[2020-11-03] MEDS ORDERED: fentaNYL INJ 100 MCG/2 ML AMP IVP ONE (10:45)
--- NOTE | 2020-11-03 11:46 | Diagnostic Imaging Report ---
PROCEDURE: CT abdomen and pelvis without contrast. TECHNIQUE: Multiple contiguous axial images were obtained through the abdomen and pelvis without the use of intravenous contrast. Auto Exposure Controls were utilized during the CT exam to meet ALARA standards for radiation dose reduction. INDICATION: Abdominal pain and hematuria. The lung bases are clear. Liver is unremarkable. There is no biliary ductal dilatation. Pancreas and spleen are unremarkable. No adrenal mass is detected. No renal calculi are identified. There is a approximately 2 to 3 mm calcific density at the right bladder base which could potentially represent a UVJ calculus. No significant hydronephrosis is seen although the right renal pelvis is somewhat prominent. The bowel loops appear to be normal caliber. There is no free fluid or fluid collection. IMPRESSION: A 2 to 3 mm calcific density in the region of the UVJ on the right without significant hydroureteronephrosis. The study is otherwise unremarkable. Dictated by: Dictated on workstation # [id number]
[2020-11-03] MEDS ORDERED: TRM50T PO (12:25)
[2020-11-03] MEDS ORDERED: TMSL.4C PO (12:25)
[2020-11-03 12:28] VITALS: BP 93/69
[2020-11-03] MEDS ORDERED: PROM25TA14 PO (12:32)
== END 2020-11-03 12:28 | disposition home or self-care (01) ==
LOC: EDUNIT# 08:39 → ER 08:44
DX: N20.0 Calculus of kidney (principal); F17.210 Nicotine dependence, cigarettes, uncomplicated
CPT/HCPCS: 36415; 74176; 80048; 81000; 82550; 85007; 85027; 93005